=== PATIENT | male | born 1965 | race Caucasian/White ===

== ENCOUNTER 2022-10-10 06:20 | Inpatient (IN) | payer MEDICARE ==
[~2022-10-10] VITALS: Ht 182.9 cm; Wt 142.2 kg
--- OUTSIDE RECORDS SUMMARY | ~2022-10-10 | XMS | Continuity of Care Document ---
Demographics + + + | Address | [address] | | | [place] [address] | + + + | Preferred Language | Unknown | + + + | Marital Status | | + + + | Catholic Affiliation | Unknown | + + + | Race | White | + + + | Ethnic Group | Unknown | + + + Author + + + | Author | [facility] | + + + | Organization | [facility] | + + + | Address | [address] | | | [place] [address] | + + + | Phone | | + + + Care Team Providers + + + + | Care Medical Insurance Collector Name | Role | Phone | + + + + Unavailable | Unavailable | + + + + Allergies and Intolerances + + + + + + | date | description | facility | reaction | severity | + + + + + + | (no date) | [facility] | (no reaction) | (no severity) | + + + + + + | (no date) | [facility] | (no reaction) | (no severity) | + + + + + + Encounters No information. Functional Status No information. Immunizations No information. Medications No information. Problems + + + + | date | description | facility | + + + + | 2020-04-27 01:07:33 | Type 2 diabetes mellitus | [facility] | | | without complications | | + + + + | 2022-10-04 21:34 | Umbilical hernia with | [facility] | | | obstruction, without | | | | gangrene | | + + + + | 2022-10-04 21:34 | Unspecified intestinal | [facility] | | | obstruction, unspecified as | | | | to partial versus complete | | | | obstruction | | + + + + Procedures No information. Results/Labs No information. Social History No information. Vital Signs No information."
--- OUTSIDE RECORDS SUMMARY | 2022-10-10 06:28 | XMS ---
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 E.D. VISIT COUNT (12 MO.) 1 [facility] 1 [facility] 1 [facility] 1 Ramirez Patrick 1 JACKIE Blount Paul TOTAL 5 NOTE: Visits indicate total known visits. ED/UCC VISIT TRACKING (12 MO.) 10/10/2022 06:22 JACKIE [place] TYPE: Emergency COMPLAINT: - ABD PAIN, DISCHARGE FROM [facility], VOMITING 10/09/2022 18:49 Soham Davis [facility] TYPE: Emergency COMPLAINT: - ABD PAIN / STOMACH ISSUE DIAGNOSES: - ABD PAIN / STOMACH ISSUE 10/08/2022 12:10 [facility] TYPE: Emergency DIAGNOSES: [id number]. Abdominal pain/vomiting, colostomy 10/04/2022 22:23 [facility] [place] TYPE: Emergency DIAGNOSES: - Unspecified abdominal pain - Abdominal pain 10/04/2022 16:54 [facility] [place] [facility] TYPE: Emergency COMPLAINT: - abd pain DIAGNOSES: - Umbilical hernia with obstruction, without gangrene - Unspecified intestinal obstruction, unspecified as to partial versus complete obstruction - abd pain - Abdominal Pain INPATIENT VISIT TRACKING (12 MO.) No inpatient visits to display in this time frame [email or web address]
[2022-10-10] MEDS ORDERED: LOSARTAN POTAS100 MG PO (06:35)
[2022-10-10] MEDS ORDERED: HYDROCHLOROTH12.5 MG PO (06:35)
[2022-10-10 11:35] VITALS: BP 103/52
--- NOTE | 2022-10-10 18:31 | NUR ---
10/10/22 183 Felicia Wolf 1728 PT ARRIVED TO PACU WITH ORAL AIRWAY IN PLACE, ASSOCIATE PRINCIPAL DOING JAW THRUST. RESP EVEN AND UNLABORED. PT HEAD TURNED TO SIDE AND JAW THRUST NO LONGER NEEDED. 1735 PT STARTED MOVING AND ORAL AIRWAY REMOVED, PT REACHING FOR HIS FACE. RN STARTS TO REORINET PT TO PACU. PT NODS "YES" TO EVERY QUESTION. PT UNABLE TO FOLLOW COMMANDS. 1740 PT GRABBING AT HIS FACE AND OR REMOVED. PT STARTED ROLLING TO SIDE AND GRABBING AT BLACKETS. TWO RNS AT BEDSIDE TRYING TO REORIENT PT TO PACU, PT NODS "YES" TO EVERY QUESTIONS. RNS CONTINUE TO HELP PT STAY IN BED. 1745 PT REPORTS THE NEED TO VOID, EDUCAITON GIVEN ON BOOTHE. BOOTHE DRAINING DRAK YELLOW URINE AND STATLOCK PLACED. 1758 PT MOVED UP IN BED AND PT MORE AWAKE AND ABLE TO HELP RNS MOVE HIM UP IN BED. PT REPORTS 8/10 PAIN. 1804 PAIN MEDICATION GIVEN, EDUCAITON GIVEN ON PAIN MEDICATION AND BREATHING. 1810 PT O2 SAT DECREASED TO 88%, 2L NC PLACED AND DEEP BREATHING ENCOURAGED. O2 INCREASED TO MID 90S. 1820 PT RESTING IN BED AND SMALL AMOUNT OF SNORING NOTED. 1830 PLAN OF CARE DISCUSSED, PT REPORTS 8/10 PAIN AND REQUESTING ICE CHIPS. 1831 ICE CHIP GIVEN.
[2022-10-10 18:49] VITALS: BP 116/44
--- NOTE | 2022-10-10 19:15 | NUR ---
PATIENT BACK FROM THE OR AT THIS TIME. PATIENT VERY AGITATED AT THIS TIME HE REPORTS HE WANTS TO "PULL OUT THIS CATHETER". TRIED TO CALM PATIENT DOWN-PT NOT LISTENING TO THIS RN. EXPLAINED TO PT THAT I NEED TO CALL PROVIDER AT THIS TIME TO ENSURE I CAN REMOVE CATHETER AND SEE ABOUT GETTING SOMETHING FOR ANXIETY PT'S IS REQUESTING MEDICATION AT THIS TIME. PT REPORTS HE WILL "RIP EVERYTHING OFF", ANOTHER RN TO BEDSIDE TO MONITOR PT WHILE I CALL DR. ARRIAGA. AT BEDSIDE WORRIED ABOUT PATIENT'S CURRENT MENTATION STATUS-REASSURANCE PROVIDED. TORB FROM DR. ARRIAGA FOR ATIVAN 1-2MG IV ONCE. BOOTHE CAN ALSO BE REMOVED PER DR. ARRIAGA. VITAL SIGNS ARE STABLE UPON RETURN FROM SURGERY. RLQ INCISION COVERED WITH ACTICOTE, SAROSANG DRAINAGE NOTED. ABD BINDER PLACED PER PROVIDER ORDER. IV SITE PATENT. PATIENT UP TO RESTROOM TO ATTEMPT TO VOID PER HIS REQUEST.
--- NOTE | 2022-10-10 19:20 | NUR ---
RECEIVED REPORT. PATIENT IS AGITATED AND NON-COOPERATIVE AT THIS TIME. PATIENT IS DEMANDING BOOTHE TO BE REMOVED. MD AWARE. BOOTHE REMOVED. PLACED ABD BINDER ON PATIENT. PATIENT ASSISTED TO THE BATHROOM A SBA. PATIENTS PRESENT IN THE ROOM. PATIENT BACK TO BED WITH OUT STAFF. EDUCATED PATIENT THAT HE NEEDS STAFF PRESENT FOR SAFETY. PATIENT STATED "MY IS MORE QUALIFIED THAN YOU" EDUCATED PATIENT THE SHE DOES NOT WORK HERE. PATIENT IS RESTING IN BED. JELLO PROVIDED. PATIENTS PRESENT IN THE ROOM. NO FURTHER NEEDS NOTED. CALL LIGHT IN REACH.
[2022-10-10 21:27] VITALS: BP 130/62
--- NOTE | 2022-10-10 21:45 | NUR ---
PATIENT ASSESMENT COMPLETED. PATIENT HAS A MID ABD INCISION, DRESSING IS LIFTING ON BOTTOM, REINFORCED, AND OLD DRAINAGE NOTED. PATIENT ALSO HAS RLQ SURGICAL SITE THAT HAS NOTED DRAINAGE AND REINFORCED WITH ABD. PATIENT HAS OSTOMY RIGHT MID ABD. PATIENT DENIES ANY NAUSEA. PATIENT REPORTS 8/10 PAIN, PRN PAIN MEDICATION GIVEN PER ORDER. PATIENTS PM MEDS PER ORDER. PATIENTS IV INFUSING PER ORDER. PATIENT DENIES ANY FURTHER NEEDS. PATIENT HAS ABD BINDER IN PLACE. PATIENT IS WEARING HOME CPAP AND CPOX IN USE. PATIENTS AT BEDSIDE AND DENIES ANY NEEDS. CALL LIGHT IN REACH.
--- NOTE | 2022-10-10 23:36 | NUR ---
PATIENT IS REFUSING TO WEAR SCDS OR PULSE OX. PATIENT EDUCATED ON IMPORATNCE OF SCDS AND PATIENT CONTINUES TO REFUSE, SCDS REMOVED. PATIENT EDUCATION ON POST-OP MONITORING FROM CPOX. PATIENT VERBALIZES UNDERSTANDING AND CONTINUES TO REFUSES. PATIENTS CPOX TURNED OFF. PATIENT DENIES ANY FURTHER NEEDS. CALL LIGHT IN REACH. IS ON COUCH.
[2022-10-11 00:20] VITALS: BP 128/55
--- NOTE | 2022-10-11 00:30 | NUR ---
PATIENT NOTIFIED RN OF 11/06 ABD PAIN. PATIENT GIVEN PRN PAIN MEDICATION. PATIENTS STATED "I THINK HE HAS A FEVER". PATIENTS VITALS TAKEN AND RECORDED. PATIENT HAS TEMP OF 100.9, PRN MEDICATION GIVEN PER ORDER. PATIENT IS NOTED TO ONLY HAVE SHEET ON AND BEDSIDE FAN GOING. PATIENTS IV INFUSING PER ORDER. FRESH ICE WATER PROVIDED. PATIENT DENIES ANY FURTHER NEEDS. CALL LIGHT IN REACH. WARM BLANKET PROVIDED FOR .
--- NOTE | 2022-10-11 02:18 | NUR ---
PATIENT ASSISTED TO SIT ON EDGE OF THE BED. PATIENT PROVIDED WITH JELLO AND BROTH. PATIENTS DRESSING REINFORCED WITH GAUZED AND OPSITE. PATIENTS ABD BINDER ADJUSTED. PATIENTS BEDDING CHANGED. PATIENT ABLE TO STAND DURING ALL ACTIVITIES AND TOLERATED THEM WELL. PATIENT IS BACK IN BED RESTING. PATIENT REPORTS 8/10 PAIN IN LOW ABD, PRN MEDS GIVEN PER ORDER. PATIENT DENIES ANY FURTHER NEEDS. CALL LIGHT IN REACH. IV INFUSING PER ORDER. PATIENT HAS NOT VOIDED SINCE REMOVAL OF CATHETER. PATIENT DENIES THE NEED TO VOID. PATIENT REFUSING BLADDER SCAN AT THIS TIME. STATING "I WILL GO WHEN I NEED TO".
--- NOTE | 2022-10-11 04:15 | NUR ---
PATIENT REPORTS 7/10 PAIN IN HER LOW ABD. PRN PAIN MEDICATION GIVEN PER ORDER. PATIENT DENIES ANY FURTHER NEEDS. CALL LIGHT IN REACH. IV INFUSING PER ORDER. PATIENT CONTINUES TO WEAR HOME CPAP.
[2022-10-11 05:50] VITALS: BP 139/105
--- NOTE | 2022-10-11 06:02 | NUR ---
PATIENT ASSISTED TO THE BR A SBA. PATIENT ABLE TO VOID. PATIENT IS NOW RESTING IN RECLINER. PATIENTS MID ABD SURGICAL SITE CONTINUES TO HAVE DRAINAGE. DRESSING REINFORCED FOR SECOND TIME WITH GAUZE AND OPSITE. PATIENTS ABD BINDER READJUSTED AND DRAINGE NOTED ON ABD BINDER THAT IS DRY. PATIENT DENIES ANY NAUSEA. PATIENT REPORTS 8/10 PAIN, PRN MED GIVEN PER ORDER. PATIENTS IV INFUSING PER ORDER. PATIENT PROVIDED WITH JELLO, ICE WATER, SPRITE, AND ICE CHIPS. PATIENTS BOWEL TONES ARE HYPOACTIVE. OSTOMY IS NOTED TO HAVE NO DRAINAGE. PATIENT DENIES ANY FURTHER NEEDS. CALL LIGHT IN REACH.
--- NOTE | 2022-10-11 07:30 | NUR ---
PATIENT UP WALKING IN HALLWAY, TOLERATING WELL. ABD BINDER INTACT, RLQ DRESSING HAS SAROSANG DRAINAGE NOTED, GAUZE IN PLACE OVER SURGICAL DRESSING. PATIENT REPORTS HE IS FEELING WELL THIS MORNING, PAIN IS TOLERABLE. PT PASSING FLATUS, +BT X4 QUADRANTS. NO CURRENT NEEDS, PERSONAL SUPPLIES AND CALL LIGHT WITHIN REACH OF PT.
--- NOTE | 2022-10-11 07:44 | NUR ---
PATIENT ATTEMPTING TO LEAVE UNIT FOR WALK. THIS RN ASKED PATIENT TO COME BACK TO MED SURG UNIT FOR SAFETY. PT FRUSTERATED HE CANNOT LEAVE MEDICAL FLOOR UNIT TO WALK. EXPLAINED TO PT I CANNOT SEE HIM IF HE FALLS IN THE LOBBY. PT BACK TO MEDICAL FLOOR. WITH PT. PT REPORTS HE WILL BE GOING HOME TODAY. DR. ARRIAGA HAS NOT YET SEEN PT TODAY FOR UPDATE PLAN OF CARE. PATIENT TOLERATING TAMARA LIQUIDS WELL.
--- NOTE | 2022-10-11 08:33 | NUR ---
Pt reports 7/10 abdominal pain and nausea. Tylenol 1000mg IV/Morphine 4mg IV and zofran 8mg IV admin at this time. Patient reports he thinks the sweet shaved clear icee made him suddenly nauseated.
[2022-10-11 09:42] VITALS: BP 93/56
[2022-10-11 10:01] VITALS: BP 107/54
[2022-10-11] MEDS ORDERED: CIPROFLOXACIN250 MG PO (10:08)
[2022-10-11] MEDS ORDERED: METRONIDAZOLE250 MG PO (10:08)
[2022-10-11] MEDS ORDERED: PERCOCET 5-3251 EACH PO (10:10)
[2022-10-11] MEDS ORDERED: TYLENOL EXTRA500 MG PO (10:10)
[2022-10-11] MEDS ORDERED: MOTRIN IB200 MG PO (10:10)
[2022-10-11] MEDS ORDERED: FAMOTIDINE20 MG PO (10:11)
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
--- NOTE | 2022-10-11 11:02 | HP ---
[facility] [address], [place] [address] Signed ADMISSION DATE: 10/10/2022 REASON FOR ADMISSION: Incarcerated umbilical hernia with abscess. HISTORY OF PRESENT ILLNESS: This 57-year-old white man is from [place], [place]. He is accompanied by his . He has a distant history of bariatric operation, probably gastric sleeve resection afterwhich he lost over 200 lbs. He is now still obese, at 130 kg in weight. Several days ago while hiking in the mountains he leaned up against a tree which fell over and dragged him down the side of the mountain. He was evaluated in [place], [place], subsequently in [place], [place] where a small-bowel follow-through and other interventions were undertaken showing no sign of intraabdominal injury or other problem. He was discharged home. In the past 24 hours or so, he has had a foul drainage from his umbilical area. He self referred to [facility] at the behest of his son who lives in [place], [place]. He was waiting in the emergency room at [facility] for at least 12 hours without being seen. He then went to [facility] where he was noted to be 120 on the list to be seen. On that basis, he traveled back from [place] and came to [facility] emergency room. He was evaluated initially by Dr. Olivas and subsequently by Dr. Hilario. He was noted to have extremely foul drainage at the umbilicus with enteric contents most likely. I was consulted and a CT scan with IV and GI contrast was obtained. This confirms a fascial defect in the midline at the umbilicus with probable abscess as well as a short segment of small bowel within the site. Clinically, it was likely he had fistulization of the small bowel to the umbilical skin. He does have some mild proximal small bowel dilatation. Thus this process does represent possible incomplete obstruction as well as the abscess and fistula . Notably, he has undergone sigmoid resection in the past for diverticular disease and has an end-colostomy. This appears to be unrelated to his current issue. The patient has had no fever, chills, or other problem and no nausea or vomiting. His lab studies obtained thus far do show an elevated lactate to 2.6. Emergency room was assumed by Dr. Hilario, who has initiated Zosyn antibiotic. Electronically Signed By: SHEFALI ARRIAGA MD 10/11/22 1102 PATIENT NAME: KARLA AUGUSTE HISTORY AND PHYSICAL DATE OF : 65 REPORT #: [id number] PHYSICIAN: SHEFALI ARRIAGA MD PCP: NO PRIMARY CARE PHYSICIAN REPORT IS CONFIDENTIAL AND NOT TO BE RELEASED WITHOUT AUTHORIZATION [facility] [address], [place] [address] Signed PAST MEDICAL HISTORY: 1. Includes morbid obesity as previously described with bariatric operation and significant weight loss ( likely gastric sleeve resection, he thinks.) 2. History of perforated or obstructing diverticulitis resulting in sigmoid resection with end colostomy (initially thought related to Crohn disease but since refuted). 3. Hypertension. SOCIAL HISTORY: He lives in [place], [place] with his . He is considered disabled and lives his . They have two grown children who do not live in the household. PHYSICAL EXAMINATION: GENERAL: This is a pleasant white man who does not look to be in severe distress or toxicity. HEENT: Mucous membranes were reasonably moist. Trachea is midline. CHEST: Clear. HEART: Regular without murmur. ABDOMEN: Still quite obese. A functioning ostomy on the left side of the abdomen and midline incision. At the umbilicus, there is a foul smelling area that has greenish discharge suggestive though not diagnostic of enteric content. He has no sign of generalized peritonitis. EXTREMITIES: Show no clubbing, cyanosis, or edema. He has no evidence of external trauma that I can see specifically hematoma or contusion. IMAGING DATA: CT scan is reviewed which shows a subcutaneous fluid collection in association of umbilical hernia with some herniation of small bowel to a degree. His colostomy through the abdominal wall appears to be without problem. ASSESSMENT: The patient has a foul smelling drainage and probable abscess the abdominal wall associated with an umbilical defect related to incision. In short, this represents likely an incisional hernia with incarcerated bowel with abscess likely but not certainly related to incarcerated small bowel. Given the drainage, fistulization from the incarcerated small bowel through the umbilical defect is also likely. I have recommended exploration, drainage of the abscess as appropriate, repair of the hernia and remedy of bowel defect if present. This might include resection of the bowel. In general terms would avoid implantation of permanent mesh in the setting, however absorbable mesh might be a consideration if mesh is necessary at all. Electronically Signed By: SHEFALI ARRIAGA MD 10/11/22 1102 PATIENT NAME: KARLA AUGUSTE HISTORY AND PHYSICAL DATE OF : 65 REPORT #: [id number] PHYSICIAN: SHEFALI ARRIAGA MD PCP: NO PRIMARY CARE PHYSICIAN REPORT IS CONFIDENTIAL AND NOT TO BE RELEASED WITHOUT AUTHORIZATION [address] [address] Signed Special risks of bleeding, infection, need for bowel resection and other unforeseen complications including anesthetic complications was reviewed in detail with the patient and his . They understand and agree. MD ANTOINETTE Rivera/JODIL /[id number] cc: MD Oziel Kang MD Dr. Brian Sabowitz Copies: SHUN PEPPER MD, WILLIAM S MD ~ Electronically Signed By: SHEFALI ARRIAGA MD 10/11/22 1102 PATIENT NAME: KARLA AUGUSTE HISTORY AND PHYSICAL DATE OF : 65 REPORT #: [id number] PHYSICIAN: SHEFALI ARRIAGA MD PCP: NO PRIMARY CARE PHYSICIAN REPORT IS CONFIDENTIAL AND NOT TO BE RELEASED WITHOUT AUTHORIZATION
--- NOTE | 2022-10-11 11:15 | NUR ---
PT TOLERATING DIET WELL. UPDATED DR. ARRIAGA AT THIS TIME. VERBAL ORDER OBTAINED THAT PATIENT MAY DISCHARGE HOME AT THIS TIME.
--- NOTE | 2022-10-11 18:26 | NUR ---
PT CALLED FOR CLARIFICATION ON CIPROFLOXACIN DOSE, PT RECEIVED 250MG TABLETS X14 AND INSTRUCTED TO TAKE 3 TABLETS BID, THIS WOULD LEAVE AN INCORRECT DOSE FOR LAST ADMINISTRATION. CALL PLACED TO DR. ARRIAGA FOR CLARIFICATION, ORDER WAS SUPPOSED TO BE 750MG TABLETS FOR 14 TABLETS OR TOTAL OF 7 DAYS. CALL PLACED TO [facility] IN [place], SPOKE WITH PHARMACIST WHO WOULD ADJUST DOSE AND FILL REMAINING. CALLED AND UPDATED ON PLAN, INSTRUCTED TO HAVE PT TAKE TONIGHTS AND TOMORROW MORNINGS DOSE THEN CONTINUE WITH NEW BOTTLE.
--- NOTE | 2022-10-14 17:43 | PATH ---
[facility] [address], [place] [address] Signed SPECIMEN(S): A HERNIA SAC SPECIMEN(S): B SEG. SML BOW. ENTEROCUTANEOUS FISTULA SPECIMEN SOURCE: A. HERNIA SAC B. SEG. SML BOW. ENTEROCUTANEOUS FISTULA CLINICAL HISTORY: A. Incarcerated umbilical hernia with abscess. B. Incarcerated hernia with fistulization out the umbilicus and abdominal wall abscess. FINAL PATHOLOGIC DIAGNOSIS: A. Hernia sac: - Benign soft tissue consistent with hernia sac. B. Segment of small bowel enterocutaneous fistula: - Segment of benign small bowel with fistula tract. - Focal acute mucosal inflammation and bowel wall and soft tissue abscess. JVR:[facility]:C2NR MICROSCOPIC EXAMINATION: Histologic sections of all submitted blocks are examined by light microscopy. These findings, together with the gross examination, support the pathologic diagnosis. GROSS DESCRIPTION: A. The specimen, labeled and designated "Khadaris, hernia sac," is received in formalin and consists of a single fragment of yellow to pink lobular fatty and fibromembranous soft tissue measuring 6.0 x 4.2 x 1.5 cm. The external surface is inked blue. The tissue is serially sectioned to reveal yellow lobular cut surfaces with areas of white to pink fibrous tissue. No further abnormalities are identified. Early Childhood Coordinator sections are submitted in (A1). B. The specimen, labeled and designated "Khadaris, segment of small bowel," is received in formalin and consists of a single torturous segment of small bowel measuring 17.5 cm in length and up to 6.2 cm in greatest circumference. The serosal surface varies from pink-woods and smooth to red-woods and ragged with serosal adhesions noted. A suture is identified which is designated as per the requisition as marking the fistula tract. The sutured area is inked black. The segment of bowel is opened to reveal the usual woods-brown plicated folds. PATIENT NAME: KARLA AUGUSTE PATHOLOGY DATE OF : 65 REPORT #: [id number] PHYSICIAN: [facility] PCP: NO PRIMARY CARE PHYSICIAN REPORT IS CONFIDENTIAL AND NOT TO BE RELEASED WITHOUT AUTHORIZATION [facility] [address], [place] [address] Signed Located at the sutured area is a fistula tract measuring up to 4.3 cm in length. It is located 5.5 cm from the closest margin. Located adjacent to the fistula tract is a woods-brown centrally softened nodule measuring 2.3 x 1.8 x 1.5 cm. No lesions are seen. Early Childhood Coordinator sections are submitted as follows: Cassette Summary: (B1) each margin, industrial relations representative, en face (B2) fistula tract (B3) adjacent woods-brown nodule (B4) normal-appearing bowel wall JM (under the direct supervision of a pathologist) The Gross Description was prepared using a voice recognition system. The report was reviewed for accuracy; however, sound-alike word errors, addition and/or deletions may occur. If there is any question about this report, please contact Client Services. PERFORMING LABORATORY: Technical component was performed by [facility], [address] [place] [id number] (CLIA# [id number]) Professional interpretation was performed by [facility], [address] [place] [id number] (CLIA#: [id number]). Diagnostician: Jluis Figueroa MD Pathologist Electronically Signed 10/14/2022 Copies: ~ PATIENT NAME: KARLA AUGUSTE PATHOLOGY DATE OF : 65 REPORT #: [id number] PHYSICIAN: [facility] PCP: NO PRIMARY CARE PHYSICIAN REPORT IS CONFIDENTIAL AND NOT TO BE RELEASED WITHOUT AUTHORIZATION
== END 2022-10-11 11:20 | disposition home or self-care (01) | DRG 329 ==
LOC: ED 06:20 → MS 10:41
PROVIDERS: ADMIT Surgery; ATTEND Surgery
PROC: 0DN80ZZ Release Small Intestine, Open Approach (ICD-10-PCS; 2022-10-10)
PROC: 0DU807Z Supplement Small Intestine with Autologous Tissue Substitute, Open Approach (ICD-10-PCS; 2022-10-10)
PROC: 0WQF0ZZ Repair Abdominal Wall, Open Approach (ICD-10-PCS; 2022-10-10)
PROC: 0W9G0ZZ Drainage of Peritoneal Cavity, Open Approach (ICD-10-PCS; 2022-10-10)
PROC: 0DB80ZZ Excision of Small Intestine, Open Approach (ICD-10-PCS; principal; 2022-10-10 13:00)
DX: K43.0 Incisional hernia with obstruction, without gangrene (principal); K65.1 Peritoneal abscess; K63.2 Fistula of intestine; L02.211 Cutaneous abscess of abdominal wall; Z68.41 Body mass index [BMI] 40.0-44.9, adult; E66.01 Morbid (severe) obesity due to excess calories; B96.89 Other specified bacterial agents as the cause of diseases classified elsewhere; K66.0 Peritoneal adhesions (postprocedural) (postinfection); I10 Essential (primary) hypertension; Z98.84 Bariatric surgery status; Z90.89 Acquired absence of other organs; Z87.19 Personal history of other diseases of the digestive system; Z93.3 Colostomy status; Z88.2 Allergy status to sulfonamides; Z79.899 Other long term (current) drug therapy
CPT/HCPCS: 00750; 36415; 74177; 80053; 81003; 83605; 83690; 85025; 87070; 87075; 87205; 87502; 94762; 96361; 96375; 96376; 99284 25; J0131; J0330; J0461; J1100; J1160; J1170; J1644; J1720; J1885; J2060; J2250; J2270; J2405; J2543; J2704; J2765; J3010; J7030; J7121; Q9967; U0002

== ENCOUNTER 2022-10-22 01:22 | Inpatient (IN) | payer MEDICARE ==
[2022-10-22] VITALS (12 sets, daily range): BP systolic 86–127; BP diastolic 38–90
[~2022-10-22] VITALS: Ht 182.9 cm; Wt 149.0 kg
[~2022-10-22 01:22] MED LIST: CIPROFLOXACIN250 MG PO; FAMOTIDINE20 MG PO; HYDROCHLOROTH12.5 MG PO; LOSARTAN POTAS100 MG PO; METRONIDAZOLE250 MG PO; MOTRIN IB200 MG PO; PERCOCET 5-3251 EACH PO; PERCOCET 7.5-31 EACH PO; TYLENOL EXTRA500 MG PO
--- OUTSIDE RECORDS SUMMARY | 2022-10-22 01:24 | XMS ---
PreManage Notification: KARLA AUGUSTE Security Keg Filler Events No recent Security Events currently on file CRITERIA MET - 6 ED Visits in 6 Months - PDMP - [facility] - 2 Visits in 30 Days - [facility] - 3 Facilities in 90 Days CARE PROVIDERS SONIA [facility] Current PHONE: Unknown Wanda has no Care Guidelines for this patient. E.Ochoa VISIT COUNT (12 MO.) 1 [facility] [address] [facility] 1 [facility] [address] [facility] [address] [facility] TOTAL 7 NOTE: Visits indicate total known visits. ED/UCC VISIT TRACKING (12 MO.) 10/22/2022 01:23 [facility] TYPE: Emergency COMPLAINT: - WOUND CHECK 10/17/2022 09:17 [facility] TYPE: Emergency COMPLAINT: - POST SURGICAL ISSUE DIAGNOSES: - Allergy status to sulfonamides - Other terminal make up operator (current) drug therapy - Other surgical procedures as the cause of abnormal reaction of the patient, or of later complication, without mention of misadventure at the time of the procedure - Postprocedural seroma of skin and subcutaneous tissue following other procedure 10/10/2022 06:22 [facility] TYPE: Emergency COMPLAINT: - ABD PAIN, DISCHARGE FROM [facility], VOMITING 10/09/2022 18:49 [facility] TYPE: Emergency COMPLAINT: - ABD PAIN / STOMACH ISSUE DIAGNOSES: - ABD PAIN / STOMACH ISSUE 10/08/2022 12:10 [facility] TYPE: Emergency DIAGNOSES: [id number]. Abdominal pain/vomiting, colostomy 10/04/2022 22:23 [facility] TYPE: Emergency DIAGNOSES: - Unspecified abdominal pain - Abdominal pain 10/04/2022 16:54 [facility] TYPE: Emergency COMPLAINT: - abd pain DIAGNOSES: - Umbilical hernia with obstruction, without gangrene - Umbilical hernia with obstruction, without gangrene - Unspecified intestinal obstruction, unspecified as to partial versus complete obstruction - Unspecified intestinal obstruction, unspecified as to partial versus complete obstruction - abd pain - Abdominal Pain INPATIENT VISIT TRACKING (12 MO.) 10/10/2022 10:[address] [facility] TYPE: Medical Surgical COMPLAINT: - UMBILICA HERNIA WITH ABSCESS DIAGNOSES: - Acquired absence of other organs - Acquired absence of other organs - Allergy status to sulfonamides - Allergy status to sulfonamides - Bariatric surgery status - Bariatric surgery status - Body mass index [BMI] 40.0-44.9, adult - Body mass index [BMI] 40.0-44.9, adult - Colostomy status - Colostomy status - Cutaneous abscess of abdominal wall - Cutaneous abscess of abdominal wall - Essential (primary) hypertension - Essential (primary) hypertension - Fistula of intestine - Fistula of intestine - Incisional hernia with obstruction, without gangrene - Morbid (severe) obesity due to excess calories - Morbid (severe) obesity due to excess calories - Other terminal make up operator (current) drug therapy - Other terminal make up operator (current) drug therapy - Other specified bacterial agents as the cause of diseases classified elsewhere - Other specified bacterial agents as the cause of diseases classified elsewhere - Peritoneal abscess - Peritoneal adhesions (postprocedural) (postinfection) - Peritoneal adhesions (postprocedural) (postinfection) - Personal history of other diseases of the digestive system - Personal history of other diseases of the digestive system [email or web address]
--- NOTE | 2022-10-22 06:23 | NUR ---
ONLY BELONGINGS AT BEDSIDE IS THE CPAP MACHINE FROM HOME.
--- NOTE | 2022-10-22 06:23 | NUR ---
PATIENT IS ABLE TO WALK TO THE BATHROOM WITH ASSISTANCE WITH LINES.
--- NOTE | 2022-10-22 07:20 | NUR ---
CONTACTED PHARMACY REGARDING MERREM. THEY WILL RESCHEDULE SINCE CURRENT DOSE IS STILL RUNNING.
--- NOTE | 2022-10-22 07:30 | NUR ---
REPORT RECIEVED FROM QUOTER RN. PATIENT RESTING IN BED WITH HIS AT THE BEDSIDE. PATIENT GIVEN PRN PAIN MEDICATION. PATIENT HAS BEEN NPO OVERNIGHT. PATIENT HAS AN OSTOMY IN PLACE OVER HIS OSTOMY AND OVER MIDLINE INCISION.
--- NOTE | 2022-10-22 08:45 | NUR ---
PATIENT OSTOMY BAG COVERING THE ABD INCISION CAME UNDONE. NEW DRESSING PLACED TO HOLD DRAINAGE. PATIENTS SKIN IS VERY RED AND IRRITATED. PATIENT IS IN SIGNIFICANT PAIN. SEE EMAR FOR PRN ADMIN. THIS RN HAS BEEN IN WITH PATIENT MAJORITY OF THE MORNING.
--- NOTE | 2022-10-22 08:50 | NUR ---
LOWER PART OF ABDOMEN INCISION IS LEAKING, NOC RN HAD PLACED AN OSTOMY BAG TO KEEP AREA CLEAN AND DRY, LIQUID HAS LEAKED AROUND THE SEALAND ALL OVER PATIENT AND HIS BED. SHASHI ELLSWORTH IN ROOM WELL, AREA CLEANED, DRIED AND NEW OSTOMY PLACED OVER SITE. DR ARRIAGA IN ROOM SHORTLY AFTER.
--- NOTE | 2022-10-22 09:00 | NUR ---
MD ARRIAGA HERE TO SEE PATIENT. THIS RN WITH MD TO SEE PATIENT.
--- NOTE | 2022-10-22 09:20 | NUR ---
CONSENT REVIEWED WITH PATIENT AND HIS . ALL QUESTIONS ANSWERED. MIKALA RN IN TO TAKE PATIENT TO DAY SURGERY TO PREP PATIENT FOR PROCEDURE. PATIENT HAS BEEN NPO ALL NIGHT. LR WITH STRAIGHT TUBING ATTACHED TO PATIENT. NEW MEDICATIONS ORDERES PLACED BY MD ARRIAGA. NO OTHER NEEDS AT THIS TIME.
--- NOTE | 2022-10-22 12:37 | NUR ---
PATIENT IS IN THE OR. COSMETOLOGIST APPRENTICE IS UNABLE TO TO DO THE DISCHARGE ASSESSMENT AT THIS TIME.
--- NOTE | 2022-10-22 14:26 | EKG ---
[facility] [address] [facility] [place], [place] [address] Signed Sinus rhythm with frequent premature ventricular complexes Otherwise normal ECG No previous ECGs available Confirmed by LIZANDRO VALERIO MD ([id number]) on 10/22/2022 2:25:51 PM Electronically Signed By: LIZANDRO VALERIO 10/22/22 1426 PATIENT NAME: KARLA AUGUSTE EDIS Electrocardiogram DATE OF : 65 PHYSICIAN: LIZANDRO VALERIO REPORT #: [id number] REPORT IS CONFIDENTIAL AND NOT TO BE RELEASED WITHOUT AUTHORIZATION
--- NOTE | 2022-10-22 16:21 | NUR ---
PATIENTS BACK AT THE BEDSIDE. PATIENT REMAINS GONE AT THIS TIME IN PROCEDURE.
[2022-10-22] MEDS ORDERED: BUPROPION HCL150 M2 PO (16:50)
--- NOTE | 2022-10-22 17:49 | NUR ---
PATIENT ARRIVED BACK TO CCU AT 1730. THIS RN IN TO GET PATIENT CHECKED BACK IN. PATIENTS SKIN ASSESSMENT DONE WITH PACU DOV RN. PATIENTS BACK/COCCYX PINK. PATIENT HAS MIDLINE INCISION WITH WOUND VAC TO MID ABD. [address] PATIENT HAS A BOOTHE IN PLACE. PATIENT COMPLAINING OF CHEST PAIN 12/07 AND STATES "ITS HEAVY LIKE A HIPPO". NOTIFIED MD ARRIAGA OF ISSUES. PER MD ORDER TROPONIN AND EKG. EKG COMPELTED AND SHOWS NORMAL SINUS RHYTHM. WILL FOLLOW-UP WITH LABS. PATIENTS AT THE BEDSIDE.
--- NOTE | 2022-10-22 18:35 | NUR ---
PATIENT REPORTS CHEST PAIN HAS RESOLVED. EKG COMPLETED AND TROPONIN LEVEL NORMAL. CALL PLACED TO MD ARRIAGA WITH NO ANSWER. PATIENT ALSO HAS A NOTEABLE ITCHY RASH OVER HIS HANDS, ARMS, AND CHEST. PRN BENEDRYL ADMINISTERED. WILL UPDATE MD WHEN HE RETURNS THE CALL.
--- NOTE | 2022-10-22 18:44 | NUR ---
10/22/22 1844 Radha Amanda 1438 PT ARRIVED IN PACU PULLING AT OXYGEN MASK. REMINDED PT TO KEEP MASK ON. WOUND VAC IN PLACE WITH SUCTION SET AT 140MMHG. ABD BINDER IN PLACE. 1610 PT'S CPAP PLACED WITH O2 AT 8L. ENCOURAGED DEEP BREATHING. SATS DROPPED TO 85%. ANESTHESIA AWARE AND AT BEDSIDE. [address] AND CHANGED WOUND VAC SUCTION TO 120MMHG. C/O ABD PAIN. LOOSENED ABD BINDER FOR COMFORT. [id number] TAP BLOCKS X 2 DONE BY ANESTHESIA. PT CONTINUES TO C/O ABD PAIN. 1715 ANESTHESIA DID INTRATHECAL DURAMORPH FOR PAIN CONTROL. 1727 TO ROOM 127. REPORT GIVEN TO RN AT BEDSIDE. PT CONTINUES TO C/O ABD PAIN. BED PLUGGED IN AND AT BEDSIDE. 2 PERSON SKIN CHECK DONE WITH NO CHANGES IN PREOP SKIN ASSESSMENT.
--- NOTE | 2022-10-22 19:30 | NUR ---
SPOKE WITH MD ARRIAGA. UPDATED MD THAT PATIENTS CHEST PAIN IS RESOLVED, EKG AND LABS NORMAL. UPDATED ABOUT PATIENTS RASH AND BENEDRYL GIVE. WILL MONTIOR ABX ADMINISTRATION TONIGHT. PER MD MAY GIVE PATIENT CLEAR LIQUIDS FOR COMFORT-LIMITED QUANTITIES. DO NOT OVER DUE IT.
--- NOTE | 2022-10-22 21:31 | NUR ---
PT NOTED TO HAVE WORSENING IN RASH ON BILAT SHOULDERS, FACE AND L. AXILLARY. AIRWAY INTACT, PT WITH NO C/O SOB OR DYSPNEA. NO EMEDAM NOTED IN ORAL PHARYNX. MEROPENEM IS THE ONLY MEDICATION ADMINISTERED PRIOR TO INCREASE IN RASH. MEROPENEM STOPPED AND PRN DIPHENHYDRAMINE ADMINISTERED. DR. ARRIAGA NOTIFIED.
[2022-10-23] VITALS (13 sets, daily range): BP systolic 99–132; BP diastolic 45–100
--- NOTE | 2022-10-23 06:36 | NUR ---
PT REMAINS AWAKE, ALERT AND ORIENTED X 4 WITH GCS OF 15. PT HAS BEEN IN A NSR WITH NOTED EPISODES OF TRIGEMINAL PVCS. PT HAS BEEN NORMOTENSIVE AND A-FEBRILE THROUGHOUT THE NIGHT. PT ABLE TO TURN SELF IN BED AND MOVES FROM SIDE TO SIDE. PT REQUIRED MULTIPLE PRNS FOR PAIN MANAGEMENT THROUGHOUT THE NIGHT. PT ALSO RECIEVED DIPHENHYDRAMINE MULTIPLE TIMES D/T RASH AND ITCHING SENSATION ON SHOULDES, FACE, AND CHEST. AT TIMES, PT NON-COMPLIANT WITH INSTRUCTION. PT REFUSED SCDS AND CONTINUED TO REQUEST FOOD AND DRINK THROUGHOUT THE NIGHT. EDUCATION PROVIDED REGARDING RISK AND NEED FOR COMPLIANCE TO PROMOTE HEALING. LABS: LEUKOCYTOSIS IMPROVED FROM 20 TO 13. H/H REMAIN STABLE. ELECTROLYTES WNL. WV WITH NO OP, COLOSTOMY WITH NO OP AND SUSY ONE WITH LESSOR OP THAN SUSY TWO. PT WITH ADEQUATE U/O - 50 TO 60 CC/HR.
--- NOTE | 2022-10-23 07:00 | NUR ---
Spoke with Bridger and his . They live in [place]. He recently had surgery and has had issues with his wound. Pt has 3 steps into his home. He states he was walking 10 miles per day. He does not have issues getting in or out of his home. He does not currently have a pcp. He has a wound vac in place and I will have Dr. Aguero complete the paperwork for auth and send to Khadra at [facility]. Discussed with pt he will need HH or a wound clinic to follow his wound care. He wound like HH from [facility] if available or [facility].
--- NOTE | 2022-10-23 07:30 | NUR ---
REPORT RECIEVED FROM [facility] SHIFT RN. PATIENT RESTING IN BED. PER REPORT PATIENT WAS REQUESTING FLUIDS THE MAJORITY OFTHE NIGHT. [place] SEAMER REVIEWED PLAN OF CARE WITH PATIENT. CALL LIGHT IN REACH. PATIENTS AT THE BEDSIDE.
--- NOTE | 2022-10-23 08:00 | NUR ---
THIS CD TECHNICIAN IN FOR MORNING VITALS, PATIENTS STANDING IN ROOM WITH CUP OF WATER AND SPOON, PATIENT DEMANDING WATER OR "SOMETHING" TO DRINK. PATIENT ADVISED TO NOT TAKE ANYTHING BY MOUTH PER DR ORDERS, PATIENTS RESONSE WAS "AND I DON'T CARE, I NEED SOMETHING TO GET RID OF THE NASTY TASTE IN MY MOUTH." AT THIS POINT PATIENT DIRECTED TO BRING THE CUP TO HIM, TOOK A COUPLE SPOONFULLS OF WATER. SENG DANIELLE IN [facility] AT THIS TIME, EDUCATING PATIENT ON IMPORTANCE ON THE NPO STATUS. PATIENT ALSO NOT WEARING HIS ABDOMINAL BINDER(TOOK IT OFF BECAUSE HE WAS SWEATY AND REFUSES TO WEAR SCDS) PATIENT HAS BEEN EDUCATED NUMEROUS TIMES ON THE IMPORTANCE OF ALL THIS. PATIENT IS VERY DEMANDING OF HIS AND STAFF, ALSO REPEATEDLY DEMANDING FOR STAFF TO CALL DR ARRIAGA FOR ANY AND ALL OF HIS NEEDS.
--- NOTE | 2022-10-23 08:45 | NUR ---
this rn answered pt call light - pt in bed and at side, asked this rn for something to drink, explained npo status and to be cautious with intake after abd surgery and dr order for npo advance slowly. pt and upset that pt can not have intake - rn explained that I would ask primary RN TO VERIFY.
--- NOTE | 2022-10-23 09:28 | NUR ---
PATIENT AWAKE IN BED, AT BEDSIDE. SUSY DRAINS EMPTIED AND BOOTHE REMOVED. CALL LIGHT IN EASY REACH
--- NOTE | 2022-10-23 09:30 | NUR ---
THIS RN IN TO SEE PATIENT. SHASHI BOOGIE LEFT EH ROOM AND PATIENT WAS BEING RUSE TO STAFF. THIS RN IN TO REVIEW PLAN OF CARE WITH PATIENT. PATIENT IS UPSET THAT HE CANT HAVE MORE FLUIDS PO. REVIEWED PLAN OF CARE WITH PATIENT AND HIS . WHILE DOING ASSESSMENT THIS RN NOTED PATIENT WAS NOT WEARING HIS ABD BINDER. PATIENT STATE "I TOOK IT OFF I WAS TO SWEATY". EDUCATED PATIENT ON THE PURPOSE AND ORDERS PER MD. PATIENT BOWEL TONES HYPOACTIVE/RARE THROUGHOUT. PATIENT TENDER IN THE ABD AREA. PATIENT WOUND VAC IN PLACE AT 120 WITH NO ISSUES. SUSY DRAINS X2 PRESENT. PATIENT HAS AN OSTOMY WITH NO OUTPUT PRESENT AT THIS TIME. GAVE PATIENT A SMALL AMOUNT OF ICE CHIPS AND A HALF OF A JELLO. PATIENT IS VERY DIRECTIVE IN HIS CARE AND DEMANDS STAFF GIVE HIM WHAT HE WANTS. WHEN PATIENT WAS BEING RUDE TO STAFF THIS AM THIS RN INTERVIENED AND CONTINUED TO EDUCATE PATIENT ABOUT KINDNESS AND PLAN OF CARE. PATIENT ALSO REFUSING HIS SCDS AT THIS TIME.
--- NOTE | 2022-10-23 10:00 | NUR ---
MD ARRIAGA IN TO SEE PATIENT. UPDATED MD PER REPORT OVERNIGHT PATIENT WANTED TO DRINK FLUIDS ALL NIGHT AND THE STAFF HAD TO CONTINUE TO LIMIT PATIENT. ALSO UPDATED THAT PATIENT REMOVED HIS ABD BINDER AND DIDNT WANT WEAR IT BECAUSE IT MADE HIM SWEATY. PATIENT HAS ALSO DECLINED WEARING THE SCDS. PATIENTS DRAISN ARE DOING WELL. NO ISSUES WITH WOUND VAC. MD RE-EDUCATED PATIENT ABOUT HIS SURGERY AND THE PLAN OF CARE. MD STATED HE WASNTS TO CONTINUE LIMITED QUANTITIES OF FLUID FOR COMFORT UNTIL HIS OSTOMY IS PUTTING OUT CONTENT. PATIENT REPORTS HE IS HAVING GAS THROUGH OSTOMY BUT NO BM PRESENT AT THIS TIME.
--- NOTE | 2022-10-23 11:50 | NUR ---
SHANTELLE GRAFF IN CCU TO GET REPORT. REVIEWED PLAN OF CARE WITH RN AND GOALS. PATIENT TO CONTINUE TO LIMITED CLEAR LIQUIDS FOR COMFORT, PATIENT HAS ORDERS FOR SCDS, AND TO WEAR THE ABD BINDER. ALL BELONGIGNS GATHEREED AND SENT WITH PATIENT AND HIS . PATIENTS PHONE ON THE TABLE WITH OTHER BELONGIGNS. PATIENT HOME CPAP ALSO SENT WITH PATIENT. NO OTHER QUESTIONS. PATIENT AND HIS HAVE BEEN MUCH BETTER WITH STAFF THIS AFTERNOON AND PATIENT APOLOGIZED FOR HIS ATTITUDE THIS AM. SHASHI PEPPER DENIES ANY FURTHER QUESTIONS .SKIN ASSESSMENT PREFORMED WITH SHASHI PEPPER.
--- NOTE | 2022-10-23 12:00 | NUR ---
RECEIVED REPORT FROM CCU RN. PERFORMED SKIN ASSESSMENT. PT DENYING PAIN AT THE MOMENT. PT SETTLED IN ROOM. PT REFUSING TO WEAR SCDS. STATED DR. ARRIAGA TOLD HIM HE DID NOT HAVE TO WEAR THEM. PT EDUCATED ON BENEFITS. CALL LIGHT WITHIN REACH NO FURTHER NEEDS VOICED.
--- NOTE | 2022-10-23 12:34 | EKG ---
[facility] [address] [facility] [place] [address] Signed Normal sinus rhythm Normal ECG When compared with ECG of 22-OCT-2022 09:46, premature ventricular complexes are no longer present Confirmed by LIZANDRO VALERIO MD ([id number]) on 10/23/2022 12:33:45 PM Electronically Signed By: LIZANDRO VALERIO 10/23/22 1234 PATIENT NAME: KARLA AUGUSTE EDIS Electrocardiogram DATE OF : 65 PHYSICIAN: LIZANDRO VALERIO REPORT #: [id number] REPORT IS CONFIDENTIAL AND NOT TO BE RELEASED WITHOUT AUTHORIZATION
--- NOTE | 2022-10-23 13:35 | NUR ---
ENTERED PTS ROOM TO GIVE REQUESTED IV PAIN MEDICATION AND ABX. PT REPORTS PAIN 10/06. NO FURTHER NEEDS VOICED AFTER ADMINISTRATION OF IV PAIN MEDICATIONS. CALL LIGHT WITHIN REACH.
--- NOTE | 2022-10-23 13:42 | NUR ---
PT SLEEPING. IN CHAIR AT BEDSIDE FOCUSED ON PHONE. DID NOT RESPOND TO MY ENTRY INTO ROOM. DID NOT DISTURB. PRAYED SILENT PRAYER FOR ONGOING HEALING.
--- NOTE | 2022-10-23 15:55 | NUR ---
RN IN ROOM TO ANSWER CALL LIGHT - STATES REMOTE IS NOT WORKING. FIXED IN ROOM. ALSO STATES HE NEEDS IV IN RIGHT AC TO BE REMOVED, INFORMED PT I WILL LET PRIMARY RN KNOW REQUEST.
--- NOTE | 2022-10-23 16:16 | NUR ---
Sent Case Management schedule sheet to the PHysician clinic as pt was a pt of Dr. Martinez. He does not have a pcp since this left. Pt would like a pcp from their clinic. Google sheet shared and requested appt for this pt. I called [facility] and [facility]. I do not believe [facility] has a HH, only a Hospice now. I was able to leave a message with [facility] asking if they service [facility] and asking for a return call. Pts chart and [facility] orders were scanned to Khadra at [facility] requesting auth and a TO Go Bag with a wound vac julio. I asked her to follow up with Yanira tomorrow as I will not be working.
--- NOTE | 2022-10-23 21:20 | NUR ---
PT ASSESSED AND MEDICATIONS GIVEN. PAIN MEDICATION GIVEN. IVF INFUSING PER ORDER. IV ABX GIVEN. OSTOMY INTACT. BAG BURPED DUE TO AIR IN BAG. NO STOOL NOTED. WOUND VAC IN PLACE AND GOOD SUCTION AND SEAL NOTED. ABDOMINAL BONDER IN PLACE. VSS. FAMILY STAYING WITH PT IN ROOM. SAFETY PRECAUTIONS MAINTIANED. CALL LIGHT WITHIN REACH. WILL CONTINUE TO MONITOR.
[2022-10-24 05:27] VITALS: BP 124/52
--- NOTE | 2022-10-24 06:04 | NUR ---
PT RESTED WELL DURING THE SHIFT. IVF INFUSING PER ORDER. EACH SUSY DRAIN HAD AN OUTPUT OF 20ML EACH DURING SHIFT. PT VOIDING WELL PER URINAL. ABDOMINAL BINDER IN PLACE. WOUND VAC INTACT. VSS. PT'S STAYED WITH PT THROUGHOUT SHIFT. SAFETY PRECAUTIONS MAINTAINED. CALL LIGHT WITHIN REACH. WILL CONTINUE TO MONITOR.
--- NOTE | 2022-10-24 06:25 | NUR ---
PT CONTINUES TO HAVE SOME AIR IN OSTOMY BAG. NO STOOL NOTED YET. WILL CONTINUE TO MONITOR.
--- NOTE | 2022-10-24 07:15 | NUR ---
RECEIVED REPORT FROM GRILL PREP COOK RN. PT IN BED. PT STATES HE WOULD LIKE HIS DIET TO BE ADVANCED TO CLEAR LIQUIDS. CALL LIGHT WITHIN REACH. NO FURTHER NEEDS VOICED.
--- NOTE | 2022-10-24 08:30 | NUR ---
PT DIET ADVANCED TO CLEARS PER VERBAL ORDER WITH MD. NO FURTHER NEEDS VOICED BY THE PATIENT. ASSESSMENT PERFROMED AND MEDICATIONS GIVEN.
[2022-10-24 09:25] VITALS: BP 136/46
--- NOTE | 2022-10-24 10:30 | NUR ---
GAVE PT PRN PAIN MEDICATIONS AND ASSISTED PT INTO A DIFFERENT POSITION. PT VOICED HE WOULD LIKE TO TRY TO START MOVING AND HAVE THE BEDREST ORDERS DISCONTINUED. MD IS AWARE AND WILL FOLLOW UP WITH PT. NO FURTHER NEEDS VOICED. CALL LIGHT WITHIN REACH.
--- NOTE | 2022-10-24 11:57 | NUR ---
PT IN BED. I EXERCISED MINISTRY OF PRESENCE PT TALKED OF LIFE EXPERIENCES. PT CONSENTED TO PRAYER. PRAYED OR HEALING AND COMFORT.
--- NOTE | 2022-10-24 11:58 | NUR ---
MED REC COMPLETE
--- NOTE | 2022-10-24 12:15 | NUR ---
ROUNDED ON PT. AIR AND SLIGHT DRAINIAGE NOTED IN OSTOMY BAG. BOWEL SOUNDS CONTINUE TO BE ACTIVE. NO FURTHER NEEDS VOICED BY THE PATIENT. CALL LIGHT WITHIN REACH.
--- NOTE | 2022-10-24 13:08 | NUR ---
ROUNDED ON PT. PT STATED HIS IV PUMP WAS ALARMING FOR OVER AN HOUR AND NO ONE CAME. AT BEDSIDE STATED SHE SHUT THE PUMP OFF. DISCUSSED WITH PATIENT AND HIS TO NOT TOUCH THE IV PUMP AND TO COME GET AN RN IF THEY FEEL THE CALL LIGHT WAS NOT ANSWERED ON TIME. CALL LIGHT JUST WENT OFF WITHIN THE PAST MINUTE OF ARRIVING TO THE ROOM
[2022-10-24 13:47] VITALS: BP 108/54
--- NOTE | 2022-10-24 13:54 | NUR ---
DRAKE FROM [facility] CALLED AND STATED THAT HH RNS SEE PATIENTS IN THE [facility]. FAXED MEDICAL RECORDS TO [facility].
--- NOTE | 2022-10-24 15:00 | NUR ---
ROUNDED ON PT. PT SLEEPING WITH EYES CLOSED. RESPIRATIONS EVEN AND REGULAR. CALL LIGHT WITHIN REACH.
--- NOTE | 2022-10-24 16:00 | NUR ---
PRN PAIN MEDICATIONS ADMINISTERED TO PATIENT PER REQUEST. IV TORADOL AND MORPHINE GIVEN. NO FURTHER NEEDS VOICED. CALL LIGHT WITHIN REACH. NO FURTHER NEEDS VOICED.
--- NOTE | 2022-10-24 18:33 | NUR ---
ROUNDED ON PT. COMPLETED VITAL SIGNS. PT DENIES PAIN. CALL LIGHT WITHIN REACH. NO FURTHER NEEDS VOICED.
[2022-10-24 18:34] VITALS: BP 169/55
--- NOTE | 2022-10-24 20:06 | NUR ---
REPORT RECEIVED FROM DAY SHIFT RN. PT LYING IN BED ALERT AND ORIENTED. PRN FOR 8/ ABD PAIN ADMIN PER EMAR. IV ABX INFUSING PER ORDER. PT DENIES FURTHER NEEDS. WHITE BOARD UPDATED. CALL LIGHT IN REACH. AT BEDSIDE.
[2022-10-24 21:32] VITALS: BP 143/49
--- NOTE | 2022-10-24 22:07 | NUR ---
EVENING ASSESSMENT COMPLETE. SCHEDULED MEDS ADMIN PER EMAR. PT REPORTS ABD PAIN TOLERABLE. DENIES NAUSEA. VS AND I&O COMPLETE. SUSY X 2 WITH SMALL AMOUNT SEROSANG DRAINAGE. MIDLINE INCISION WITH WOUND VAC IN PLACE. SMALL AMOUNT SEROSANG DRAINAGE NOTED. BOWEL TONES ACTIVE. ABD SOFT. OSTOMY WITH AIR BURPED BY PT. ABD BINDER IN PLACE. PT REFUSING SCD'S. EDUCATION PROVIDED. PT VERBALIZES UNDERSTANDING AND CONTINUES TO REFUSE. PT WEARING HOME CPAP. ICE CHIPS PROVIDED. PT DENIES QUESTIONS OR CONCERNS. CALL LIGHT IN REACH.
--- NOTE | 2022-10-25 00:06 | NUR ---
CALL LIGHT ANSWERED. PT REPORTS ABD PAIN 11/06. PRN FOR PAIN ADMIN PER EMAR. WARM BLANKET PROVIDED. NO FURTHER NEEDS.
--- NOTE | 2022-10-25 01:28 | NUR ---
PT REPORTS 8/10 ABD PAIN. PRN FOR PAIN ADMIN PER EMAR. IV ABX INFUSING PER ORDER. ASSISTED PT TO REPOSITION. ICE CHIPS PROVIDED. NO FURTHER NEEDS.
--- NOTE | 2022-10-25 03:57 | NUR ---
IV PUMP ALARMING. NEW BAG IVF INFUSING WNL. PT REPORTS HE IS RESTING WELL. NO FURTHER NEEDS.
[2022-10-25 05:34] VITALS: BP 126/49
--- NOTE | 2022-10-25 06:18 | NUR ---
VS AND I&O COMPLETE. COFFEE PROVIDED PER REQUEST. PT REPORTS HE IS "FEELING GREAT" THIS AM. DENIES PRN FOR PAIN WHEN OFFERED. DENIES NAUSEA. ASSESSMENT UNCHANGED. OSTOMY BURPED BY PT. NO BM NOTED IN BAG. SUSY X 2 WITH SEROSANG DRAINAGE. WOUND VAC AND ABD BINDER IN PLACE. PT DENIES FURTHER NEEDS. CALL LIGHT IN REACH.
--- NOTE | 2022-10-25 07:54 | NUR ---
REPORT FROM Kina RAMIREZ RN. PATIENT AWAKE IN BED, SPOUSE AT BEDSIDE. PATIENT REQUESTS TO GET UP IN RECLINER AT THIS TIME STATING HE IS TIRED OF BEING IN BED. STATES HE WILL LEAVE HIS FEET UP WHILE IN CHAIR. LINENS ON BED CHANGED. FEET ELEVATED IN CHAIR, CALL LIGHT IN REACH. STATES HE NOT IN PAIN AT THIS TIME. IN ROOM.
--- NOTE | 2022-10-25 08:29 | NUR ---
ASSIST BACK INTO BED. STANDBY ASSIST. BREAKFAST PROVIDED. SPOUSE ASSISTING WITH TRAY SET UP.
[2022-10-25 10:47] VITALS: BP 168/54
--- NOTE | 2022-10-25 11:00 | NUR ---
WOUND VAC DRESSING TO ABDOMEN REMOVED BY DR. ARRIAGA. 2 PIECES OF SPONGE TO ABDOMINAL WOUND AND WOUND VAC APPLIED. NO LEAK NOTED WHEN SUCTION INITIATED. PATIENT PAINFUL WITH DRESSING CHANGE. SEE EMAR.
--- NOTE | 2022-10-25 13:36 | NUR ---
In room to obtain, vital signs. patient resting with eyes closed, home cpap in place. Allowed to rest at this time. at bedside. Patient has verbalized multiple times he has not been sleeping. Will get vitals when awake. Spouse at bedside.
--- NOTE | 2022-10-25 14:53 | NUR ---
PAIN CONTINUES TO BE 8/10 SINCE DRESSING CHANGE THIS AM. DR. ARRIAGA CALLED. TELEPHONE ORDER DR. ARRIAGA/Bridgette BHATTI RN, FOR PERCOCET 7.5/325 MG PO 1-2 TABS Q 6 HOURS FOR PAIN.
[2022-10-25 14:59] VITALS: BP 171/44
--- NOTE | 2022-10-25 16:54 | NUR ---
PATIENT CALLED DUE TO OSTOMY BAG LEAKING. OSTOMY APPLIANCE AND BAG CHANGED. LARGE AMOUNT OF STOOL NOTED. ABDOMINAL BINDER REPLACED AND STANDBY ASSIST TO RECLINER AT THIS TIME. CALL LIGHT IN REACH. SPOUSE IN ROOM.
[2022-10-25 17:21] VITALS: BP 157/69
--- NOTE | 2022-10-25 18:39 | NUR ---
PT WITH LARGE AMOUNT OF STOOL FROM OSTOMY. OSTOMY APPLIANCE REPLACED, ABD BINDER REPLACED. STOOL CLEANSED FROM SKIN. BEDDING CHANGED. PT NOW RESTING IN CHAIR, FEET RECLINED. PT DENIES OTHER NEEDS AT THIS TIME.
--- NOTE | 2022-10-25 19:26 | NUR ---
REPORT RECEIVED FROM DAY SHIFT RN. PT SITTING IN RECLINER WITH LEGS ELEVATED. ALERT AND ORIENTED. DENIES NEEDS. WHITE BOARD UPDATED. CALL LIGHT IN REACH.
[2022-10-25 20:45] VITALS: BP 160/53
--- NOTE | 2022-10-25 21:18 | NUR ---
EVENING ASSESSMENT COMPLETE. SCHEDULED MEDS ADMIN PER EMAR. PRN ADMIN FOR 8 ABD PAIN. PT DENIES NAUSEA. WOUND VAC IN PLACE AT 120 MMHG SUCTION. SCANT AMOUNT SEROSANG DRAINAGE NOTED IN TUBING. SUSY X 2 WITH SMALL AMOUNG SEROUS DRAINAGE. OSTOMY PATENT WITH SCANT AMOUNT BROWN DRAINAGE. BOWEL TONES ACTIVE. ABD SOFT. ABD BINDER IN PLACE. PT AGREEABLE TO WEAR SCD'S. SCD'S PLACED. TEMP 99.1. INCENTIVE SPIROMETER AND EDUCATION PROVIDED. PT RELUCTANT, BUT AGREED TO USE. PT DEMONSTRATED PROPER USE. TEMP RECHECKED BEFORE LEAVING ROOM, 97.2. HOME CPAP IN PLACE. AT BEDSIDE. PT DENIES QUESTIONS OR CONCERNS. CALL LIGHT IN REACH.
--- NOTE | 2022-10-25 22:38 | NUR ---
CALL LIGHT ANSWERED. PT REQUESTING SOMETHING FOR SLEEP. PRN FOR SLEEP ADMIN PER EMAR. NO FURTHER NEEDS.
--- NOTE | 2022-10-26 00:27 | NUR ---
PT RESTING IN BED WITH EYES CLOSED. RESPIRATIONS EVEN. CPAP IN PLACE. CALL LIGHT IN REACH.
--- NOTE | 2022-10-26 01:41 | NUR ---
IV PUMP ALARMING. NEW BAG IVF INFUSING PER ORDER. PT SPILLED URINAL IN BED. UP TO RECLINER WITH SBA. ABD BINDER IN PLACE. LINENS CHANGED. ALEC CARE DONE. BACK TO BED. MINI WELL. CPAP IN PLACE. NO FURTHER NEEDS.
--- NOTE | 2022-10-26 03:17 | NUR ---
CALL LIGHT ANSWERED. PT REPORTS ABD PAIN 11/06. PRN FOR PAIN ADMIN PER EMAR. PT UP TO RECLINER WITH ASSIST FROM . ASSESSMENT UNCHANGED. NO FURTHER NEEDS. CALL LIGHT IN REACH.
[2022-10-26 06:14] VITALS: BP 154/63
--- NOTE | 2022-10-26 06:18 | NUR ---
COFFEE PROVIDED FOR PT AND PER REQUEST. VS AND I&O OBTAINED. LLQ SUSY NOTED TO HAVE 20 ML BROWNISH RED CLOUDY LOOKING DRAINAGE WITH WHITE SEDIMENT. RLQ SUSY WITH 30 ML SEROSANG DRAINAGE. WOUND VAC WITH SCANT AMOUNT RED DRAINAGE. PT REPORTS PAIN IS TOLERABLE. DENIES NAUSEA. NO FURTHER NEEDS AT THIS TIME. CALL LIGHT IN REACH.
--- NOTE | 2022-10-26 07:29 | NUR ---
REPORT FROM Kina RAMIREZ RN. PATIENT ALERT AND ORIENTED. SPOUSE AT BEDSIDE. VERBALIZES DESIRE TO WALK IN HALLS, HAVE SUSY DRAINS PULLED. DUE TO INCREASED URINATION DURING THE NIGHT, IV FLUIDS STOPPED FOR NOW AND IV CONVERTED TO SL. WALKER PROVIDED SO PATIENT MAY AMBULATE. WOUND VAC REMAINS IN PLACE, NO LEAKS NOTED, SUCTIONING WITHOUT DIFFICULTY. RATES PAIN 6/10 AT THIS TIME, TOLERABLE PAIN PER PATIENT.
[2022-10-26 09:58] VITALS: BP 139/65
[2022-10-26 13:31] VITALS: BP 157/56
[2022-10-26 16:39] VITALS: BP 159/55
--- NOTE | 2022-10-26 19:52 | NUR ---
REPORT RECEIVED FROM DAY SHIFT RN. PT LYING IN BED ALERT AND ORIENTED. DENIES NEEDS AT THIS TIME. WHITE BOARD UPDATED. CALL LIGHT IN REACH.
[2022-10-26 21:05] VITALS: BP 146/68
--- NOTE | 2022-10-26 21:35 | NUR ---
PT SITTING IN RECLINER WITH LEGS ELEVATED. EVENING ASSESSMENT COMPLETE. SCHEDULED MEDS ADMIN PER EMAR. MIDLINE ABD INCISION WITH WOUND VAC IN PLACE TO 120 MMHG SUCTION. SUSY X [address] RLQ WITH 10 ML SEROUS DRAINAGE. LLQ SUSY WITH 10 ML CLOUDY RED DRAINAGE WITH SEDIMENT NOTED. OSTOMY WITH 250 ML BROWN OUTPUT. PT DENIES NAUSEA. PAINFUL BUT AGREEABLE TO WAIT FOR PRN FOR PAIN TO BECOME AVAILABLE. EATING AND DRINKING WELL. IN ROOM TO STAY THE NIGHT. PT DENIES FURTHER NEEDS. CALL LIGHT IN REACH.
--- NOTE | 2022-10-26 22:46 | NUR ---
CALL LIGHT ANSWERED. PT REPORTS ABD PAIN 11/06. PRN FOR PAIN AND SLEEP ADMIN PER EMAR. PT REMAINS IN RECLINER WITH LEGS ELEVATED. RESTING ON COUCH. PT DENIES FURTHER NEEDS.
--- NOTE | 2022-10-27 00:46 | NUR ---
PT RESTING IN RECLINER WITH EYES CLOSED. RESPIRATIONS EVEN. CALL LIGHT IN REACH.
--- NOTE | 2022-10-27 01:58 | NUR ---
PT AWAKE IN RECLINER. REPORTS HE IS RESTING WELL AND COMFORTABLE AT THIS TIME. BLANKETS PROVIDED. NO FURTHER NEEDS.
--- NOTE | 2022-10-27 04:04 | NUR ---
PT RESTING IN RECLINER WITH LEGS ELEVATED. RESPIRATIONS EVEN. RESTING ON COUCH WITH SERVICE DOG. CALL LIGHT IN REACH.
[2022-10-27 06:29] VITALS: BP 125/73
--- NOTE | 2022-10-27 06:54 | NUR ---
VS AND I&O OBTAINED. PT SITTING IN RECLINER. REPORTS PAIN IS TOLERABLE. DENIES NAUSEA. COFFEE PROVIDED. LLQ SUSY WITH 18 ML SLIGHTLY CLOUDY SEROSANG DRAINAGE WITH WHITE SEDIMENT NOTED. ABD ASSESSMENT UNCHANGED. PT DENIES FURTHER NEEDS. CALL LIGHT IN REACH.
--- NOTE | 2022-10-27 07:49 | NUR ---
THIS ENGINE LATHE TENDER HAS TAKEN OVER CARES FOR THIS PT FROM FUNERAL DIRECTOR ENGINE LATHE TENDER. THE PT IS CURRENTLY RESTING ON THE COUCH WITH BLE ELEVATED. PT ASKED IF THIS ENGINE LATHE TENDER HAD SEEN DR. ARRIAGA THIS MORNING. ENGINE LATHE TENDER TOLD THE PT THEY HAVE NOT SEEN HIM YET. PT STATED HE IS EAGER TO GET OUT OF THE HOSPITAL. PT DENIES ANY NEEDS AT THIS TIME. CALL LIGHT WITHIN REACH.
--- NOTE | 2022-10-27 07:55 | NUR ---
REPORT RECEIVED FROM SHASHI MURCIA. PT UP SITTING ON COUCH WITH CPAP IN PLACE. REMOVED AND PT STATES HE IS READY TO GO AND WANTS HIS DRAINS REMOVED. EXPLAINED THERE ARE SURGERIES TODAY AND WE DON'T HAVE A SPECIFIC TIME FRAME.
--- NOTE | 2022-10-27 08:01 | NUR ---
SPOKE TO PATIENT ABOUT HIS DISCHARGE PLAN. PATIENT PLANS TO GO HOME TO HIS HOUSE IN POWDER OR. PATIENT'S WOUND VAC SUPPLIES CAME TODAY. PATIENT UPDATED.
--- NOTE | 2022-10-27 08:30 | NUR ---
PT SITTING UP IN CHAIR WITH ON COUCH. PT HAS MANY MANY COMPLAINTS BUT SEEMS TO BE IN OK MOOD. EATING WHAT APPEARS TO BE FAST FOOD BUT PUT IT AWAY UPON ENTERING ROOM. BT HYPOACTIVE BUT STATES HE HAS HAD "GALLONS" OUT OF OSTOMY. WOULD LIKE DRESSING ON WOUND VAC CHANGED PRIOR TO LEAVING. HAS A REDENED PANUS AND COULD USE SOME NYSTATIN, BUT STATES THEY WILL USE BAG BALM UPON RETURNING HOME.
--- NOTE | 2022-10-27 10:00 | NUR ---
AUTOMOTIVE PARTS COORDINATOR CALLED TO SAY PT HAD WALKED TO FRONT OF HOSPITAL AND IS CURRENTLY SITTING IN CHAIRS AT FIREPLACE "BECAUSE THEY ARE MORE COMFORTABLE". HAD PREVIOUSLY GOTTEN DRESSED.
--- NOTE | 2022-10-27 10:45 | NUR ---
PRICING COORDINATOR ENTERED PT ROOM TO OBTAIN VITAL SIGNS AND I&OS. PT STATED, "I DO NOT WANT ANY OF THAT UNTIL I TALK TO CASE MANAGEMENT. I DO NOT FEEL SAFE HERE." PRICING COORDINATOR NOTIFIED CASE MANAGEMENT PER PT REQUEST. CASE MANAGEMENT STATED THEY WOULD GO IN TO SPEAK WITH THE PT. CALL LIGHT WITHIN REACH.
--- NOTE | 2022-10-27 10:55 | NUR ---
WENT TO SEE PT TO ASK ABOUT HIS PAIN MEDS. HE STATES "NO HUN, I DON'T WANT ANYTHING FROM HERE ANYMORE. I DON'T WANT ANY PAIN MEDS ANYMORE. I DON'T FEEL SAFE HERE, THEY HAVE BOTCHED EVERYTHING AND I JUST WANT TO GO." APOLOGIZED THAT HE FEELS THAT WAY AND STATED THAT IF HE CHANGED HIS MIND, THEY ARE AVAILABLE. DENIES FURTHER NEEDS FROM THIS RN ATT.
--- NOTE | 2022-10-27 11:25 | NUR ---
ASK TO GO TO PATIENT'S ROOM, THAT PATIENT WAS ASKING FOR THE CASE MANGER. PATIENT STATES HE DOES NOT FEEL SAFE AT THIS HOSPITAL. PATIENT ASKING TO TALK TO SOME IN CHARGE BECAUSE HE WAS GOING TO LEAVE AND GO TO THE ANOTHER HOSPITAL. SPOKE TO ARTEM LANDRY AND ARTEM AND THE CHARGE NURSE WILL TALK YO THE PATIENT.
--- NOTE | 2022-10-27 11:35 | NUR ---
AFTER MANY STAFF IN TO TALK TO PT AND HE DECIDED TO LEAVE AMA. IV'S REMOVED WNL. CHANGED WOUND VAC OVER TO HOME CANISTER. SENT WITH ALL BELONGINGS. LOADED BELONGINGS INTO CAR. PT SAFELY SAT IN FRONT SEAT AFTER DOG MOVED TO BACK.
--- NOTE | 2022-10-27 11:40 | NUR ---
1100 PATIENT IS UPSET AND DEMANDING TO BE TRANSFERRED. [address] ARRIAGA TO MAKE HIM AWARE THAT PATIENT WAS DEMANDING TO BE TRANSFERRED. 1110 IN ROOM WITH UNDERCOAT SPRAYER ARTEM TO HEAR PATIENT COMPLAINTS. [address] ARRIAGA, LET HIM KNOW WE WERE IN ROOM LISTING TO PATIENT'S COMPLAINTS. 1115 PATIENT INSISTED ON LEAVING HOSPITAL, AMA FORM PROVIDED. PRIMARY NURSE IN TO CHANGE WOUND VAC OVER TO PATIENT'S HOME UNIT AND REMOVE X2 IV'S. PATIENT SIGNED AMA FORM. 1130 PATIENT HAS LEFT THE HOSPITAL. CALL TO DR. ARRIAGA TO LET HIM KNOW THAT PATIENT HAS LEFT AMA AND HAS HIS HOME WOUND VAC UNIT AND WOUND VAC SUPPLIES.
--- NOTE | 2022-10-27 12:32 | NUR ---
At approximately 1055, I was notified that patient had complaints about their care and wished to speak to someone in charge. I entered room with supervisor propellant charge loading, Yadira, at 1110 to talk to patient and his significant other (adult female) who was in the room. I let pt know I was the software manager and asked what was going on. Pt expressed, "I've been lied to" about his discharge plan by Dr. Sy, stated that he was told he was going home this morning and Dr. Sy "moved the finish line". Pt stated "I've been doing everything I'm supposed to and he keeps changing things". Patient also complained about nursing staff not being responsive in a timely manner in CCU (pt reported waiting "6 hours" to get assistance) and on med-surg (pt reported waiting "1 hour to get my temperature checked when I asked for it"). IThe patient stated he didn't "feel safe" staying in the hospital and wanted to leave. The supervisor propellant charge loading, Yadira, and I let him know that Dr. Sy's plan was to see him this afternoon, and the patient stated "I don't want to see him again". Pt requested that the nursing staff take out his abdominal drains, which we declined, instructed patient that removal of drains by nursing staff required a doctor's order. We offered to move the patient to his outpatient wound vac, but wanted to ensure that authorization was given by insurance to use it so that the patient wouldn't pay out of pocket if it wasn't fully authorized. The patient stated that we were trying to make more money, however, his significant other agreed with the plan to verify with case management first. The patient requested that his AMA form reflect his statement "I've don't feel safe here due to multiple issues". Patient signed AMA form after Yadira supervisor propellant charge loading, and myself read the completed form to him. Risks of refusal of care included worsening of condition, infection, worsening, and . Patient invited to return for new or worsening conditions or issues, and he stated "i'm never coming back here again". Patient transferred himself to the wheelchair without RN assist, taken to front by MEMBERSHIP SECRETARY and RN with belongings, room checked for belongings, all patient belongings with patient and significant other.
--- NOTE | 2022-10-27 15:10 | PATH ---
[facility] [address] [place], [place] [address] Signed SPECIMEN(S): A COLON, SEGMENTAL RESECTION, OTHER THAN FOR TUMOR SPECIMEN(S): B BOWEL W/ANASTAMOSIS FISTULA SPECIMEN SOURCE: A. COLON, SEGMENTAL RESECTION, OTHER THAN FOR TUMOR B. BOWEL W/ANASTAMOSIS FISTULA CLINICAL HISTORY: Intra-abdominal abscess. FINAL PATHOLOGIC DIAGNOSIS: A. Portion of ileum: - Segment of benign small bowel with serosal and subserosal acute inflammation. - Focal fat necrosis. - Negative for atypical epithelial features. B. Bowel with anastomosis fistula: - Segment of benign small bowel with a central area of 0.5 x 0.4 cm disruption with associated abscess and prominent acute inflammation. [id number] MICROSCOPIC EXAMINATION: Histologic sections of all submitted blocks are examined by light microscopy. These findings, together with the gross examination, support the pathologic diagnosis. GROSS DESCRIPTION: A. The specimen, labeled and designated "Malina, A" and designated on the requisition "portion of ileum," is received in formalin and consists of a previously opened and fragmented portion of small bowel (43.5 cm in length and ranging in circumference from 3.2 to 5.5 cm) with attached fat extending up to 3.5 cm in multiple attached and detached pieces of suture material. The jane are removed, one margin is inked green and the opposite margin is inked black. The serosa is markedly red-brown roughened and disrupted with an area of yellow-woods induration (6.5 x 4.5 x 2.2 cm). The specimen is pink-woods mucosa with no masses lesions or nodules gross identified. Agricultural Technical Officer sections are submitted. Cassette Summary: (A1-A2) Bowel margins, shaved, en face (A3) Bowel wall PATIENT NAME: KARLA AUGUSTE PATHOLOGY DATE OF : 65 REPORT #: [id number] PHYSICIAN: [facility] PCP: NO PRIMARY CARE PHYSICIAN REPORT IS CONFIDENTIAL AND NOT TO BE RELEASED WITHOUT AUTHORIZATION [facility] [address], [place] [address] Signed (A4-A5) Bowel wall with indurated fat B. The specimen, labeled and designated "Malina, B" and designated on the requisition "bowel with anastomosis fistula," is received in formalin and consists of a previously opened and fragmented segment of bowel (35 cm in length and ranging in diameter from 3.0 to 7.0 cm), one margin is inked blue and the opposite margin is inked black. The specimen is opened to reveal the serosa is woods-pink to red-brown and markedly roughened with adherent exudate. The mucosa is pink-woods to red-brown with area (0.5 x 0.4 cm) of disruption (inked green) located 11 cm from the black inked margin 20 cm from the blue inked margin. The disruption is surrounded by white-woods yellow-woods indurated. Agricultural Technical Officer sections are submitted. Cassette Summary: (B1-B2) Margins, shaved, en face (B3-B4) Area of disruption (B5) Additional bowel wall AC (under the direct supervision of a pathologist) The Gross Description was prepared using a voice recognition system. The report was reviewed for accuracy; however, sound-alike word errors, addition and/or deletions may occur. If there is any question about this report, please contact Client Services. PERFORMING LABORATORY: Technical component was performed by [facility], [address] [place] [id number] (CLIA# [id number]). Professional interpretation was performed by [facility] - [facility], [address] [place] [id number] (CLIA#: [id number]). Diagnostician: Jluis Figueroa MD Pathologist Electronically Signed 10/27/2022 Copies: ~ PATIENT NAME: KARLA AUGUSTE PATHOLOGY DATE OF : 65 REPORT #: [id number] PHYSICIAN: [facility] PATHOLOGY PCP: NO PRIMARY CARE PHYSICIAN REPORT IS CONFIDENTIAL AND NOT TO BE RELEASED WITHOUT AUTHORIZATION
--- NOTE | 2022-10-28 10:00 | NUR ---
Notified by staff when I arrived this morning this patient left AMA yesterday. He left with the wound vac box and his paperwork was not signed. Pt sent to [facility]. I called and spoke with their information technology account manager, Maxine. She states pt was not seen in their ER and was not admitted. I was also notified by Yanira in , Home Health from [facility] called her and are declining this patient for wound care. I updated Dr. Aguero and he will try to call the patient today to find where he wants to get his wound vac changed. Pat does not have a home health and [facility] declined him. Dr. Aguero did state the pt agreed to come into our Out Patient's for wound care. I have received emails from Khadra Rolle from [facility] asking for this patients paperwork. I have updated her. She did state she spoke with the patient yesterday and and he informed her the hospital would be paying for his wound vac. She let him know they would be billing him as he has it in place. Pt then told her to contact his and they will give her a credit card for the co pay. She attempted to call the and she did not answer her phone. She asks the nurse that placed the wound vac yesterday, sign the paper work as the third [employer] party signature. I will ask for this to be completed.
--- NOTE | 2022-10-28 15:12 | DS ---
[facility] [address] [place], [place] [address] Signed ADMISSION DATE: 10/22/2022 DISCHARGE DATE: 10/27/2022 (THE PATIENT LEFT AMA). HISTORY OF PRESENT ILLNESS: This morbidly obese 57-year-old white man is known to me from the past having undergone emergency laparotomy on October 10, 2022, for incarcerated incisional hernia at the umbilicus associated with abdominal wall abscess and enterocutaneous fistula of the small bowel. The patient is morbidly obese with 130 kg. He has a distant history of bariatric operation, which was a gastric sleeve resection. He also has a distant history of left colectomy with end colostomy related to perforated diverticulitis problem. His operation prior to current admission included segmental bowel resection with end-to-end anastomosis, placement of omental pedicle graft over the abdominal contents, debridement of the abdominal wall and closure. The patient had immediate resumption of bowel function and insisted on being discharged the following day; since he did satisfy discharge criteria that was undertaken. He presented at this time to the emergency room with enteric leakage from the incision site. A CT scan was performed through the emergency room, which showed complex fluid collection and air within the peritoneal cavity, extensive stranding throughout the abdominal cavity consistent with complex intraabdominal abscesses as well as enteric fluid leak. He is admitted for further evaluation and care. PERTINENT PHYSICAL EXAMINATION: GENERAL: Showed a morbidly obese white man, who did not look comfortable. VITAL SIGNS: Temperature was 99, pulse 83, blood pressure 109/90. NECK: Trachea is midline. HEENT: Mucous membranes were reasonably moist. CHEST: Shows normal respiratory excursion. Pulses regular. ABDOMEN: Quite obese, but soft. There is an ostomy appliance containing enteric fluid drainage from the midline incision in the region of the umbilicus. LABORATORY STUDIES: Showed a white count of 20.9, hematocrit 36, platelets 701,000. Creatinine 0.92. Lactic acid 0.8. Liver enzymes normal. HOSPITAL COURSE: The patient was fluid resuscitated and given meropenem antibiotic. On October 22, 2022, he underwent reopening of the midline laparotomy. He was found to have multiple Electronically Signed By: SHEFALI ARRIAGA MD 10/28/22 1512 PATIENT NAME: KARLA AUGUSTE DISCHARGE SUMMARY DATE OF : 65 REPORT #: [id number] PHYSICIAN: SHEFALI ARRIAGA MD PCP: NO PRIMARY CARE PHYSICIAN REPORT IS CONFIDENTIAL AND NOT TO BE RELEASED WITHOUT AUTHORIZATION [facility] [address] [place], [place] [address] Signed intraabdominal abscesses including intermesenteric abscesses and a dominant abscess of the root of the mesentery. Enteric leakage (enterocutaneous fistula) was noted in the region of the previous small bowel resection and anastomosis. Extensive intraabdominal adhesions, both chronic and recent were noted. The operation was prolonged, complicated, and difficult. It consisted of drainage of the abscesses, extensive mobilization of small bowel and adhesiolysis as well as segmental small bowel resection in the area of the enterocutaneous fistula with end-to-end hand-sewn enterostomy (ileum) with application of fibrin glue as well as segmental small bowel resection with [id number] stapled enteroenterostomy more proximally in an area that underwent extensive mobilization. Extensive peritoneal lavage and placement of drains was undertaken, one in the right paracolic gutter and the other in the pelvis. Given his profound abdominal obesity, closure of the midline fascia was undertaken, but a wound VAC was applied as well, so as to provide additional traction on the fascial edges so as to avoid dehiscence, which would be calamitous comorbidity should it occur. The patient had a nasogastric tube for decompression, which was promptly removed and a Duong catheter was allowed to remain in place. The drains that were placed had progressive improvement and clearing. The patient was anxious for discharge far sooner than was reasonable and was noncompliant with use of his sequential compression device stockings and other small issues, but in general continued to improve. Broad-spectrum antibiotic meropenem was converted to Cipro and Flagyl antibiotic. His drains were essentially clear the day prior to discharge. I personally changed his wound VAC dressing on October 25. A pre-albumin had been obtained perioperatively, which was low (about 15). At time of wound VAC dressing change, he had excellent granulation of the subcutaneous fat. The fascia itself was reapproximated and appeared to be healing. The plan at that point was to maintain the wound VAC dressing. Attempts at organizing for wound VAC dressing changes closer to his home in [facility] were attempted but rather unsuccessful unfortunately. The patient and his were willing to return to [facility] twice weekly for wound VAC dressing change. On the morning of October 27, 2022, the patient was ambulatory in the hallway and was doing well. The wound VAC device had been ordered and had been received and thus able to allow for discharge likely in the afternoon. I had indicated that I would hope to possibly remove the drains in the afternoon after review of his laboratory tests and examination once in his room. Sometime thereafter the patient became quite disgruntled and demanded immediate Electronically Signed By: SHEFALI ARRIAGA MD 10/28/22 1512 PATIENT NAME: KARLA AUGUSTE DISCHARGE SUMMARY DATE OF : 65 REPORT #: [id number] PHYSICIAN: SHEFALI ARRIAGA MD PCP: NO PRIMARY CARE PHYSICIAN REPORT IS CONFIDENTIAL AND NOT TO BE RELEASED WITHOUT AUTHORIZATION [facility] [address] [place], [place] [address] Signed discharge from the hospital. Indeed, he was doing well and the plan was for discharge later in the day once full examination of the wound VAC dressing and drains could be undertaken. Conference was made with the professional nursing assistant and his nurse, the patient insisted on leaving against medical advice with a wound VAC in place. My intention was for the patient to maintain several more days of Cipro and Flagyl antibiotic. Remove the drains once completely clear and see the patient as an outpatient as his midline fascial wound heals. I do believe that he will continue to do well so long as the wound VAC dressing is changed twice a week and care is maintained to avoid excessive straining on the midline incision. He has been maintained with an abdominal wall binder throughout the course of his hospitalization and restriction of excessive standing and sitting at least for the 1st week. Unfortunately, the patient has signed out against medical advice. I am certainly happy to see him again should he allow it and will facilitate his full recovery if and when he is willing. DISCHARGE DIAGNOSES: 1. 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 Omental pedicle graft application. 2. Evox-lz-wqmy enteroenterostomy of separate resected small bowel segment. 3. Morbid obesity (130 kg). 4. Relative malnutrition. Prealbumin 15. 5. History of incarcerated umbilical hernia with enterocutaneous fistula, status post resection and repair of hernia without implantation of mesh. 6. History of sigmoid resection for advanced diverticular disease, currently with end colostomy. MD ANTOINETTE Rivera/JODIL /[id number] Electronically Signed By: SHEFALI ARRIAGA MD 10/28/22 1512 PATIENT NAME: KARLA AUGUSTE DISCHARGE SUMMARY DATE OF : 65 REPORT #: [id number] PHYSICIAN: SHEFALI ARRIAGA MD PCP: NO PRIMARY CARE PHYSICIAN REPORT IS CONFIDENTIAL AND NOT TO BE RELEASED WITHOUT AUTHORIZATION [facility] [address] [place] [address] Jigar Bryan [id number] Signed cc: MD Mark Gottlieb MD [place] Copies: DANICA BULLOCK MD ~ Electronically Signed By: SHEFALI ARRIAGA MD 10/28/22 1512 PATIENT NAME: KARLA AUGUSTE DISCHARGE SUMMARY DATE OF : 65 REPORT #: [id number] PHYSICIAN: SHEFALI ARRIAGA MD PCP: NO PRIMARY CARE PHYSICIAN REPORT IS CONFIDENTIAL AND NOT TO BE RELEASED WITHOUT AUTHORIZATION
--- NOTE | 2022-10-29 10:48 | HP ---
[facility] [address] [place], [place] [address] Signed ADMISSION DATE: 10/22/2022 REASON FOR ADMISSION: Intra-abdominal abscesses and probable enterocutaneous fistula. HISTORY OF PRESENT ILLNESS: This morbidly obese 57-year-old white man is known to me from the past having undergone laparotomy on October 10, 2022 for an incarcerated incisional hernia with associated abdominal wall abscess and enterocutaneous fistula of the small bowel. The patient is notably morbidly obese at 130 kg. He has a distant history of bariatric operation and distant history of left colectomy with end colostomy. His presentation for incarcerated incisional hernia showed enteric fluid leakage at the umbilicus. Operation included exploration of the abdomen at the region of the umbilicus with drainage of abdominal and intra-abdominal abscess, extensive lysis of adhesions including excision of portions of the midline abdominal wall fascia in continuity with fused underlying small bowel. Segmental small bowel resection was undertaken with associated lysis of adhesions and an omental pedicle graft covered the abdominal contents. Repair of the midline abdominal wall hernia included primary closure with internal retention sutures without implantation of mesh. Hernia defect was 8 cm. The patient did quite well initially and was sent home soon thereafter operation. He presented back to the emergency room several days ago and was evaluated by Dr. Bullock, where he was noted to have had egress of apparent seroma fluid from the incision. There was no sign of enteric drainage per se and he was discharged from the ER. He returned last night at approximately 2:00 a.m. and was evaluated by Dr. Olivas where he was noted to have significant foul smelling discharge from the umbilicus. A CT scan was performed late last night, showing complex fluid collection, air within the peritoneal cavity and extensive stranding throughout the abdominal cavity and pelvis with free fluid. An abscess along the posterior left paramedian abdomen measured 8 cm and abscess in the right hepatic lobe measuring 7.1 cm. There are pockets of free air in the abdomen. The patient was begun on broad-spectrum antibiotics including meropenem. His white count was noted to be 20.9. He was admitted directly to the Intensive Care Unit for further management. At present, the patient is alert and oriented. His is attending to him. He is quite uncomfortable as might be expected. Electronically Signed By: SHEFALI ARRIAGA MD 10/29/22 1048 PATIENT NAME: KARLA AUGUSTE HISTORY AND PHYSICAL DATE OF : 65 REPORT #: [id number] PHYSICIAN: SHEFALI ARRIAGA MD PCP: NO PRIMARY CARE PHYSICIAN REPORT IS CONFIDENTIAL AND NOT TO BE RELEASED WITHOUT AUTHORIZATION [facility] [address] [place], [place] [address] Signed LABORATORY STUDIES: His admission lab study showed a white count of 20.9, hematocrit of 36, platelets of 701,000, the Chem profile which was normal and a creatinine of 0.92. Lactic acid was 0.8. Liver enzymes were essentially normal. Albumin low at 1.9. REVIEW OF SYSTEMS: He denies any shortness of breath or chest pain, only abdominal pain. PHYSICAL EXAMINATION: GENERAL: Very obese white man, who looks to be uncomfortable. VITAL SIGNS: Presentation temperature at 5:48 a.m. was 99, at 7:45 was 97.4, pulse is 83, blood pressure 109/90. NECK: Trachea is midline. HEENT: Mucous membranes are reasonably moist. CHEST: Shows normal respiratory excursion. Pulses regular. ABDOMEN: Quite obese, but soft. There is an ostomy appliance draining enteric fluid from the incision site. His long standing left sided colostomy is viable. EXTREMITIES: Show no clubbing, cyanosis, or edema. ASSESSMENT: The patient clearly has disruption of bowel with an enterocutaneous fistula. Whether this is from the anastomotic area or elsewhere is uncertain. Exploration of the abdomen is needed for peritoneal cleansing and control of what may be a defect in the continuity of the bowel. The risk of bleeding, infection, need for additional treatment and other unforeseen complications was reviewed with the patient and his . They understand and wished to proceed. Shefali Arriaga MD JM/MODL /[id number] cc: MD Dr. Deisy Gottlieb Electronically Signed By: SHEFALI ARRIAGA MD 10/29/22 1048 PATIENT NAME: KARLA AUGUSTE HISTORY AND PHYSICAL DATE OF : 65 REPORT #: [id number] PHYSICIAN: SHEFALI ARRIAGA MD PCP: NO PRIMARY CARE PHYSICIAN REPORT IS CONFIDENTIAL AND NOT TO BE RELEASED WITHOUT AUTHORIZATION [address] [address] Signed Copies: DANICA BULLOCK MD ~ Electronically Signed By: SHEFALI ARRIAGA MD 10/29/22 1048 PATIENT NAME: KARLA AUGUSTE HISTORY AND PHYSICAL DATE OF : 65 REPORT #: [id number] PHYSICIAN: SHEFALI ARRIAGA MD PCP: NO PRIMARY CARE PHYSICIAN REPORT IS CONFIDENTIAL AND NOT TO BE RELEASED WITHOUT AUTHORIZATION
--- NOTE | 2022-10-29 10:48 | OR ---
[facility] [address], [place] [address] Signed DATE OF OPERATION: 10/22/2022 SURGEON: Shefali Arriaga MD PREOPERATIVE DIAGNOSES: 1. 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 2. Recent (October 10, 2022) repair of incarcerated umbilical incisional hernia with enterocutaneous fistula with end-to-end enteroenterostomy. Primary hernia closure. 3. Morbid obesity (130 kg). 4. Distant history of bariatric procedure, probable gastric sleeve resection; additional subsequent left colectomy with end-colostomy for probable diverticular disease. 5. CT scan findings of intraabdominal abscesses and free air. POSTOPERATIVE DIAGNOSES: 1. Intraabdominal abscesses including intermesenteric abscesses and root of mesentery abscess. 2. Enteric leakage (enterocutaneous fistula) in the region of previous small bowel resection and anastomosis. 3. Extensive intra-abdominal adhesions, both chronic and recent. PROCEDURES: 1. Exploration of abdomen and drainage of intraabdominal abscesses including root of mesentery. 2. Extensive mobilization of small bowel included adhesiolysis of chronic and recent adhesions. 3. Segmental small bowel resection of area of enterocutaneous fistula with end-to-end hand-sewn enteroenterostomy (ileum) with application of fibrin glue. 4. Segmental small bowel resection with quof-by-tjmd stapled enteroenterostomy and application of fibrin glue (jejunum). 5. Extensive peritoneal lavage and placement of drains. 6. Wound VAC application. ANESTHESIA: General endotracheal, John Yuan CRNA INDICATIONS: This 57-year-old morbidly obese white man (130 kg) underwent operation by in on October 12, 2022, for enteric drainage of the umbilicus related to incarcerated small bowel with an enterocutaneous fistula. Operation consisted of mobilization of the small Electronically Signed By: SHEFALI ARRIAGA MD 10/29/22 1048 PATIENT NAME: KARLA AUGUSTE OPERATIVE REPORT DATE OF : 65 REPORT #: [id number] PHYSICIAN: SHEFALI ARRIAGA MD PCP: NO PRIMARY CARE PHYSICIAN REPORT IS CONFIDENTIAL AND NOT TO BE RELEASED WITHOUT AUTHORIZATION [facility] [address], [place] [address] Signed bowel and segmental bowel resection with end-to-end anastomosis, application of an omental pedicle graft over the abdominal viscera and primary closure of the abdominal fascial defect. He had prompt improvement and was discharged home. Approximately five days ago presented to [facility] with a sudden kirk of serous fluid from the abdominal incision area. Evaluation by Dr. Oziel Hilario, emergency room physician showed this to likely be a seroma as there was no ongoing drainage and no fascial defect. The patient since that time has had progressive drainage and noted to have sunil bilious drainage last night. He presented to the emergency room, where he was evaluated by Dr. Olivas; a CT scan was performed confirming intraabdominal abscesses, no sign of fascial dehiscence per se, but enteric drainage from the wound consistent with the enterocutaneous fistula once again. The patient's white count was noted to be 20.5. He was admitted to the Intensive Care Unit and further fluid resuscitation was undertaken, IV antibiotic administration undertaken, and preparation for exploration and remedy. I have recommended exploration of the abdomen remedy of the small bowel leakage problem by whatever means and other indicated procedures as deemed appropriate. The risk of bleeding, infection, recurrent enterocutaneous fistula, and other unforeseen complications were reviewed with the patient and his , they understand and wished to proceed. FINDINGS: Sunil bilious fluid was noted emanating from the midline incision in the region of the umbilicus. It was related to an enteric defect near, but not directly in the anastomotic area. I would suspect that this represents ischemic defect by whatever cause. Dense omental adhesions were noted to the area as would be expected given placement of omentum in the base of the wound at the conclusion the procedure. There were several areas within the abdominal cavity that had interloop abscesses, all of them drained, the dominant most purulent one at the root of the small bowel mesentery. There were chronic adhesions from distant abdominal surgery and acute adhesions from recent operation, which were lysed providing mobility of virtually all the small bowel. this included some located to the left side of the abdomen. The area of the enterocutaneous fistula was segmentally resected and reanastomosed in quite obviously viable bowel with additional application of fibrin glue. Another segment of bowel that had been entangled in the inflammatory process, which were present in mid jejunum required resection and [id number] enteroenterostomy. Resected bowel from the enterocutaneous fistula was approximately 8 inches from the ileocecal valve itself, therefore consistent with the ileum. The liver appeared normal. There were dense adhesions that precluded ready mobilization of the stomach remnant. The transverse and right colons appeared normal and the ostomy emanating from the left side was viable. The fascia itself had a gummy, markedly inflamed consistency, for which primary closure Electronically Signed By: SHEFALI ARRIAGA MD 10/29/22 1048 PATIENT NAME: KARLA AUGUSTE OPERATIVE REPORT DATE OF : 65 REPORT #: [id number] PHYSICIAN: SHEFALI ARRIAGA MD PCP: NO PRIMARY CARE PHYSICIAN REPORT IS CONFIDENTIAL AND NOT TO BE RELEASED WITHOUT AUTHORIZATION [facility] [address], [place] [address] Signed was undertaken; application of wound VAC to the depths of the wound was undertaken to provide additional support and induce granulation in a prompt way. Omental remnants were applied over the area of anastomosis of the dominant problem. The procedure was prolonged, complicated, and difficult lasting from approximately 09:30 a.m. to 04:05 p.m. DESCRIPTION OF PROCEDURE: The patient was brought to the operating room and given a general endotracheal anesthetic. Preoperative antibiotic, meropenem had been given. Sequential compression stockings were applied as was heparin subcutaneously administered. An ostomy appliance had been applied over the midline incision at the region of the umbilicus to gather enteric fluid, which emanated from it. Notably, the fluid was thin and bilious and without solid material. The abdomen was once again clipped and prepared with a chlorhexidine solution. An Ioban was applied over the area of the colostomy, so as to avoid drainage during the case into the wound. The previous midline incision was incised with the #15 blade and dissection carried through the thick inflammatory granulation, most particularly notable inferiorly. The incision was extended cephalad incising midline fascia as well. Isolation of the source of the enteric leakage was undertaken; poorly recognizable bowel loops were noted in the depths of the wound, where inflammatory mass was noted. Ultimately found was an enteric defect with several small silk sutures nearby but not at the anastomosis proper. This was surprising considering the viability of the bowel noted two weeks ago. At first glance, it seemed that perhaps simple fistula control would be appropriate; however, the CT scan preoperatively had shown several intraabdominal abscesses and those would certainly need to be drained and would be not amenable to any other approach of drainage other than open laparotomy. On that basis, multiple small bowel loops were freed from interloop adhesions, some of them chronic, some of them acute. Several areas of inflammatory fluid were broken down and Gram stain and culture was sent. Subsequent STAT Gram stain report included gram-positive cocci, gram-negative rods and white cells. Extensive mobilization of small bowel was undertaken in those areas outside the inflammatory cicatrix. Mindful that he had already undergone left colectomy and has a colostomy, those areas on the left side were distinguished from small bowel loops quite readily. The incision was extended cephalad somewhat into new previously uninflamed areas showing only relatively thin interloop adhesions. Ultimately, all of the intraabdominal fluid collections were broken down including the dominant abscess, which was at the root of the small bowel mesentery. Dissection inferiorly was somewhat challenging, probably on the basis of prior dissection in the area from sigmoid resection. Nevertheless, ultimately the cecum could be well identified as was the ileum. The process of enteric leakage was approximately 12 inches from the ileocecal valve, thus indicative of the ileum itself. Electronically Signed By: SHEFALI ARRIAGA MD 10/29/22 1048 PATIENT NAME: KARLA AUGUSTE OPERATIVE REPORT DATE OF : 65 REPORT #: [id number] PHYSICIAN: SHEFALI ARRIAGA MD PCP: NO PRIMARY CARE PHYSICIAN REPORT IS CONFIDENTIAL AND NOT TO BE RELEASED WITHOUT AUTHORIZATION [facility] [address], [place] [address] Signed It was deemed most appropriate to provide resection of this inflammatory problem rather than prolonged and problematic long-term fistula management. On that basis, the small bowel segments heading into the inflammatory mass were carefully freed, preserving mesenteric blood flow. A segment of small bowel and related to the original problem was noted to be densely adherent to it, this was freed more fully and found to have a tear made during the course of dissection in the small bowel. The segment 2 was freed completely identifying well its mesenteric anatomy. Quite clearly, this area would need to be resected as well. Once all bowel loops were freed and the identity more fully established, plans were made for resection. The small bowel that was completely viable in the jejunum, nevertheless requiring resection due to the bowel disruption, was identified. The mesentery was scored and application of hemostats and 0-silk ties used to secure the mesentery. The viable segment of bowel proximally and distally was transected with a 60 mm ELTON stapling device. Under the circumstances of this bowel being completely normal, save for some minimal extrinsic inflammatory change, a stapled anastomosis was deemed reasonable. This was accomplished in a [id number]-mr-[id number] technique with a ELTON stapling device, 80 mm in size. The stapled ends that had been resected to apply the anvils of the stapling device were oversewn with a running 3-0 Vicryl in the mucosal layer and interrupted 3-0 silks in the serosal layer. Stabilizing the sutures at the crotch of the anastomosis were undertaken. Notably, inspection of the anastomosis showed to be hemostatic and quite viable. Once the mesenteric defect was secured with interrupted 3-0 silk sutures, bowel set aside and attention turned towards the primary inflammatory mass. This small bowel was found to be ileal in origin, identification of the right colon and cecum confirmed this. Although, this segment of bowel was a bit dilated and certainly a bit more thickened than the other areas. Primary resection was deemed most advisable. The thickened mesentery to this area was scored and the mesentery vascular arcade secured with 0-silk suture. Similarly to the jejunal segment already excised, the viable portion of bowel proximally and distally to the resected specimen was transected with the ELTON stapling device, 60 mm in size. This segment was passed for Pathology as well. Although initially considering a stapled [id number] anastomosis, given that only 8 inches of the ileum remained and given the size of the small bowel, a hand-sewn anastomosis was deemed most advisable. The anastomosis was meticulously undertaken with an interrupted technique of 3-0 silk suture for the serosa and interrupted 3-0 Vicryl for the Vicryl layer. Mesenteric defect was secured with interrupted 3-0 silk suture and Tisseel (fibrin glue) applied in an aerosolized manner to this anastomosis and to the staple anastomosis. Irrigation was undertaken copiously throughout the abdomen, confirming no retained fluid collections so far as could be told. Two drains were placed, one in the left lower quadrant into the pelvis and another through the right lower quadrant extending cephalad along the right paracolic gutter. The small bowel was replaced in the abdominal cavity in an anatomically appropriate configuration. A segment of omentum, for which there was only a small amount actually was freed more fully and carefully sutured to the anastomotic Electronically Signed By: SHEFALI ARRIAGA MD 10/29/22 1048 PATIENT NAME: KARLA AUGUSTE OPERATIVE REPORT DATE OF : 65 REPORT #: [id number] PHYSICIAN: SHEFALI ARRIAGA MD PCP: NO PRIMARY CARE PHYSICIAN REPORT IS CONFIDENTIAL AND NOT TO BE RELEASED WITHOUT AUTHORIZATION [facility] [address] [place] [id number] Signed site with a single stitch in the right mid abdomen. The anastomoses were marked with large clips for future radiologic identification should the need arise. Plans were then made for closure. The midline fascia was thick in the normal portion and was recalled as quite thick and healthy on previous operation. At this point, normal fascia had been incised superiorly was in distinction to the very thickened, inflamed and gummy fascia in the central abdomen. Nevertheless, primary closure of the abdomen was deemed most advisable. The abdominal fascia was closed in a running bidirectional configuration with #1 PDS suture. Multiple interrupted internal retention sutures were applied with #1 PDS as well. Irrigation was undertaken in the subcutaneous space. Extensive granulation of the area, where enterocutaneous fascial egress was noted was such that a wound VAC device would be more appropriate than a simple closure of the skin. This was applied and 125 mmHg of pressure applied with good effect. The drains were applied to bulb suction and showed only serosanguineous fluid. DISPOSITION: The patient was transferred to the stretcher using a rubber mat device and an abdominal binder applied as well. COUNTS: Sponge, needle, and instrument counts reported as correct x3. BLOOD LOSS: Estimated at 400 mL or less. The operation was prolonged, complicated, and difficult, lasting nearly 7 hours. MD ANTOINETTE Rivera/RUBEN /[id number] cc: MD Dr. Mark Gottlieb Electronically Signed By: SHEFALI ARRIAGA MD 10/29/22 1048 PATIENT NAME: KARLA AUGUSTE OPERATIVE REPORT DATE OF : 65 REPORT #: [id number] PHYSICIAN: SHEFALI ARRIAGA MD PCP: NO PRIMARY CARE PHYSICIAN REPORT IS CONFIDENTIAL AND NOT TO BE RELEASED WITHOUT AUTHORIZATION [facility] [address] [place], [place] [address] Signed Copies: OZIEL HILARIO MD ~ Electronically Signed By: SHEFALI ARRIAGA MD 10/29/22 1048 PATIENT NAME: KARLA AUGUSTE EDIS OPERATIVE REPORT DATE OF : 65 REPORT #: [id number] PHYSICIAN: SHEFALI ARRIAGA MD PCP: NO PRIMARY CARE PHYSICIAN REPORT IS CONFIDENTIAL AND NOT TO BE RELEASED WITHOUT AUTHORIZATION
--- NOTE | 2022-10-29 11:53 | NUR ---
Spoke with Dr. Aguero. He attempted to call this patient and his . Neither would answer their phones. I called [facility] and spoke with Ashia in Case Management. She confirms this pt came to the ER yesterday and they referred him to their Wound Clinic. [facility] [phone]. The wound vac was changed yesterdah and he is scheduled again this week. I will update Dr. Aguero and I emailed Khadra Rolle from [facility] to contact their wound clinic for notes.
== END 2022-10-27 11:30 | disposition left against medical advice (07) | DRG 856 ==
LOC: ED 01:22 → CCU 03:26 → MS 10-23 12:30
PROVIDERS: ADMIT Surgery; ATTEND Surgery
PROC: 0W9G00Z Drainage of Peritoneal Cavity with Drainage Device, Open Approach (ICD-10-PCS; 2022-10-22)
PROC: 0D9670Z Drainage of Stomach with Drainage Device, Via Natural or Artificial Opening (ICD-10-PCS; 2022-10-22)
PROC: 0DB80ZZ Excision of Small Intestine, Open Approach (ICD-10-PCS; principal; 2022-10-22 09:00)
PROC: 0DN80ZZ Release Small Intestine, Open Approach (ICD-10-PCS; 2022-10-22 09:00)
DX: T81.49XA Infection following a procedure, other surgical site, initial encounter (principal); K65.1 Peritoneal abscess; K63.2 Fistula of intestine; Z68.42 Body mass index [BMI] 45.0-49.9, adult; E46 Unspecified protein-calorie malnutrition; E66.01 Morbid (severe) obesity due to excess calories; K66.0 Peritoneal adhesions (postprocedural) (postinfection); Y83.8 Other surgical procedures as the cause of abnormal reaction of the patient, or of later complication, without mention of misadventure at the time of the procedure; Z98.84 Bariatric surgery status; Z90.49 Acquired absence of other specified parts of digestive tract; Z88.2 Allergy status to sulfonamides; Z79.899 Other long term (current) drug therapy; Z87.19 Personal history of other diseases of the digestive system
CPT/HCPCS: 00840; 36415; 64488; 74177; 76942; 80048; 80053; 83605; 84134; 84484; 85025; 85060; 87040; 87070; 87075; 87205; 88307; 93005; 93010; 94760; 97162; A9270; J0131; J0330; J1100; J1170; J1200; J1644; J1885; J2001; J2185; J2270; J2274; J2405; J2543; J2704; J2795; J3010; J3475; J3490; J7121; Q9967